=== PATIENT | female | born 1940 | race Caucasian/White ===

== ENCOUNTER 2019-10-10 14:28 | Emergency (ER) | payer MEDICARE ==
[~2019-10-10] VITALS: Ht 162.6 cm; Wt 63.3 kg
[2019-10-10 14:53] VITALS: BP 164/86
--- NOTE | 2019-10-10 15:33 | RAD ---
3 views of the left tibia and fibula no comparison. INDICATION: Contusion and pain in the anterior left tibia. FINDINGS: Calcifications seen in the patellar ligament. There is an irregularity of the medial tibial tubercle there appears to be prepatellar swelling of the tissue anterior to the joint space. IMPRESSION: 1. Possible nondisplaced fracture of the lateral tibial plateau with possible effusion. Recommend dedicated imaging of the knee and cross-sectional imaging if necessary. Electronically signed by: Uriel Segovia MD (10/10/2019 3:30 PM) [id number]
--- NOTE | 2019-10-10 15:38 | PHYS DOC ---
Past Medical History Past Medical History: No Pertinent History Past Surgical History: No Surgical History Alcohol Use: None Adult General Chief Complaint Chief Complaint: LOWEREXTREMITY INJURY [facility] Patient is a 78 year old female who presents with a fall that occurred around 11 AM. Patient states that she fell and hit her left johnston on concrete. The patient denies anything else. The patient states that her pain as 8 out of 10 when she tries to bear weight. The patient states she's having tenderness to left lower leg. Complete ROS were reviewed and found to be within normal limits, except as documented in the [facility] Allergies Allergies Allergies Coded Allergies Type Severity Reaction Last Updated Verified No Known Drug Allergies 10/10/19 No Physical Exam Physical Exam Constitutional: Well developed, well nourished, no acute distress, non-toxic appearance. [] HENT: Normocephalic, atraumatic, bilateral external ears normal, oropharynx moist, no oral exudates, nose normal. [] Eyes: PERRLA, EOMI, conjunctiva normal, no discharge. [] Neck: Normal range of motion, no tenderness, supple, no stridor. [] Cardiovascular:Heart rate regular rhythm, no murmur [] Lungs & Thorax: Bilateral breath sounds clear to auscultation [] Abdomen: Bowel sounds normal, soft, no tenderness, no masses, no pulsatile masses. [] Skin: Warm, dry, no erythema, no rash. [] Back: No tenderness, no CVA tenderness. [] Extremities: No tenderness, no cyanosis, no clubbing, ROM intact, no edema. [] Neurologic: Alert and oriented X 3, normal motor function, normal sensory function, no focal deficits noted. [] Psychologic: Affect normal, judgement normal, mood normal. [] Current Patient Data Vital Signs Vital Signs Date Time Temp Pulse Resp B/P (MAP) Pulse Ox O2 Delivery O2 Flow Rate FiO2 10/10/19 14:53 98.4 104 18 164/86 (112) 97 Room Air 98.4 EKG EKG [] Radiology/Procedures Radiology/Procedures [facility] [address] [place] [address] IMAGING REPORT Signed PATIENT: CHAPARRO HAND ACCOUNT: [id number] : 1940 LOCATION: ER AGE: 78 SEX: F EXAM STATUS: REG ER ORD. PHYSICIAN: GUILLERMINA NORMAN APRN REASON: abnormal x-ray, please scan knee to ankle PROCEDURE: CT LOWER EXTREMITY WO LEFT EXAM: CT left tibia/fibula without contrast DATE: 10/10/2019 3:45 PM COMPARISON: No prior INDICATION: Left knee and lower leg pain TECHNIQUE: CT left lower extremity from the knee through the ankle was performed without the administration of IV contrast. Axial, coronal and sagittal reformatted images were generated at the railroad crane operator console. PQRS compliance statement - One or more of the following individualized dose reduction techniques were utilized for this study: 1. Automated exposure control 2. Adjustment of the mA and/or kV according to patient size 3. Use of iterative reconstruction technique FINDINGS: There is a nondisplaced fracture through the lateral tibial spine and although there is mild underlying trabecular irregularity/microfracturing, no significant articular surface depression or distal extension through the femoral diametaphysis. Moderate lipohemarthrosis of the knee. Patellar tendon ossification, likely from old injury, corticated. Patellar enthesopathy. Knee joint degenerative changes are seen with small associated osteophytes. Decreased bone density. There is also a nondisplaced fractures of the posterior process of the talus without significant displacement. This likely extends to the posterior Turner margin of the tibiotalar joint and extends into the subtalar joint, nondisplaced. Subtle nondisplaced fracture through the anterior process of the calcaneus. IMPRESSION: 1. Nondisplaced lateral tibial spine fracture without significant articular surface depression or subluxation. Moderate left knee hemarthrosis. 2. Nondisplaced fracture through the posterior process of the talus with tibiotalar articular surface extension at the posterior most margin of the talar articular surface. There is also extension into the central portion of the posterior subtalar joint. 3. Nondisplaced fracture through the anterior process of the calcaneus. 4. Decreased bone mineral density. Electronically signed by: Steven Boyle MD (10/10/2019 4:21 PM) [id number] DICTATED and SIGNED BY: STEVEN BOYLE MD DATE: 10/10/19 1621 [][facility] [address] [place] [address] IMAGING REPORT Signed PATIENT: CHAPARRO HAND ACCOUNT: [id number] : 1940 LOCATION: ER AGE: 78 SEX: F EXAM STATUS: PRE ER ORD. PHYSICIAN: GUILLERMINA NORMAN APRN REASON: FALL, CONTUSION AND PAIN TO PROXIMAL ANTERIOR LEFT TIB/FIB PROCEDURE: TIBIA FIBULA LEFT 3 views of the left tibia and fibula no comparison. INDICATION: Contusion and pain in the anterior left tibia. FINDINGS: Calcifications seen in the patellar ligament. There is an irregularity of the medial tibial tubercle there appears to be prepatellar swelling of the tissue anterior to the joint space. IMPRESSION: 1. Possible nondisplaced fracture of the lateral tibial plateau with possible effusion. Recommend dedicated imaging of the knee and cross-sectional imaging if necessary. Electronically signed by: Uriel Segovia MD (10/10/2019 3:30 PM) [id number] DICTATED and SIGNED BY: URIEL SEGOVIA MD DATE: 10/10/19 1530 Course & Med Decision Making Course & Med Decision Making Pertinent Labs and Imaging studies reviewed. (See chart for details) Will get Tib/Fib film. Imaging shows: IMPRESSION: 1. Possible nondisplaced fracture of the lateral tibial plateau with possible effusion. Recommend dedicated imaging of the knee and cross-sectional imaging if necessary. Will get additional imaging and get CT IMPRESSION: 1. Nondisplaced lateral tibial spine fracture without significant articular surface depression or subluxation. Moderate left knee hemarthrosis. 2. Nondisplaced fracture through the posterior process of the talus with tibiotalar articular surface extension at the posterior most margin of the talar articular surface. There is also extension into the central portion of the posterior subtalar joint. 3. Nondisplaced fracture through the anterior process of the calcaneus. 4. Decreased bone mineral density. Electronically signed by: Steven Boyle MD (10/10/2019 4:21 PM) [id number] Will page Dr. Delgado (Ortho) Discussed with Dr. Delgado who recommends patient be non-weight bearing and see him in a week. Dragon Disclaimer Dragon Disclaimer This electronic medical record was generated, in whole or in part, using a voice recognition dictation system. Departure Departure Impression: Primary Impression: Fracture of tibial spine, closed Additional Impressions: Talus fracture Calcaneus fracture, left Disposition: 01 HOME, SELF-CARE Condition: STABLE Referrals: SÁNCHEZ DELGADO MD Additional Instructions: Thank you for visiting [facility]. We appreciate you trusting us with your care. If any additional problems come up don't hesitate to return to visit us. Please follow up with your primary care provider so they can plan additional care if needed and know about the problem that you had. If symptoms worsen come back to the Emergency Department. Any concerning symptoms that start such as chest pain, shortness of air, weakness or numbness on one side of the body, running high fevers or any other concerning symptoms return to the ER. Please follow up with Dr. Delgado in a week. Problem Qualifiers Primary Impression: Fracture of tibial spine, closed Encounter type: initial encounter Fracture alignment: nondisplaced Laterality: left Qualified Codes: S82.115A - Nondisplaced fracture of left tibial spine, initial encounter for closed fracture Additional Impressions: Talus fracture Encounter type: initial encounter Fracture type: closed Talus location: unspecified portion of talus Fracture alignment: nondisplaced Laterality: left Qualified Codes: S92.102A - Unspecified fracture of left talus, initial encounter for closed fracture Calcaneus fracture, left Encounter type: initial encounter Fracture type: closed Fracture morphology: unspecified fracture morphology Fracture alignment: nondisplaced GUILLERMINA NORMAN APRN Oct 10, 2019 15:37
--- NOTE | 2019-10-10 16:24 | RAD ---
EXAM: CT left tibia/fibula without contrast DATE: 10/10/2019 3:45 PM COMPARISON: No prior INDICATION: Left knee and lower leg pain TECHNIQUE: CT left lower extremity from the knee through the ankle was performed without the administration of IV contrast. Axial, coronal and sagittal reformatted images were generated at the elevating grader operator console. PQRS compliance statement - One or more of the following individualized dose reduction techniques were utilized for this study: 1. Automated exposure control 2. Adjustment of the mA and/or kV according to patient size 3. Use of iterative reconstruction technique FINDINGS: There is a nondisplaced fracture through the lateral tibial spine and although there is mild underlying trabecular irregularity/microfracturing, no significant articular surface depression or distal extension through the femoral diametaphysis. Moderate lipohemarthrosis of the knee. Patellar tendon ossification, likely from old injury, corticated. Patellar enthesopathy. Knee joint degenerative changes are seen with small associated osteophytes. Decreased bone density. There is also a nondisplaced fractures of the posterior process of the talus without significant displacement. This likely extends to the posterior Turner margin of the tibiotalar joint and extends into the subtalar joint, nondisplaced. Subtle nondisplaced fracture through the anterior process of the calcaneus. IMPRESSION: 1. Nondisplaced lateral tibial spine fracture without significant articular surface depression or subluxation. Moderate left knee hemarthrosis. 2. Nondisplaced fracture through the posterior process of the talus with tibiotalar articular surface extension at the posterior most margin of the talar articular surface. There is also extension into the central portion of the posterior subtalar joint. 3. Nondisplaced fracture through the anterior process of the calcaneus. 4. Decreased bone mineral density. Electronically signed by: Steven Nazario MD (10/10/2019 4:21 PM) [id number]
== END 2019-10-10 17:40 | disposition home or self-care (01) ==
LOC: ER 14:28
DX: S82.115A Nondisplaced fracture of left tibial spine, initial encounter for closed fracture (principal); S92.102A Unspecified fracture of left talus, initial encounter for closed fracture; S92.002A Unspecified fracture of left calcaneus, initial encounter for closed fracture; W18.09XA Striking against other object with subsequent fall, initial encounter; Y93.89 Activity, other specified; Y92.89 Other specified places as the place of occurrence of the external cause; Y99.8 Other external cause status
CPT/HCPCS: 73590; 73700; 99284-25

== ENCOUNTER 2020-04-14 13:17 | Inpatient (IN) | payer MEDICARE ==
[~2020-04-14] VITALS: Ht 162.6 cm; Wt 67.7 kg
--- NOTE | 2020-04-14 13:31 | PHYS DOC ---
Past Medical History Past Medical History: No Pertinent History Past Surgical History: No Surgical History Smoking Status: Never Smoker Alcohol Use: None General Adult EDM: Chief Complaint: Syncope and left hip injury HPI: HPI: Patient is a 79 year old female who presents since for evaluation following a syncope event. Patient was on the bathroom and got up and passed out. After passing out patient is having dizziness and nausea and the nausea is improved. Patient landed on her left hip and has left hip pain severe pain with range of motion. Pain radiates down the left leg. Patient denies any recent illnesses. No fever no chest pain no shortness of breath no cough no blood in her stool. Pain is described as throbbing Review of Systems: Review of Systems: Constitutional: Denies fever or chills. [] Eyes: Denies change in visual acuity. [] HENT: Denies nasal congestion or sore throat. [] Respiratory: Denies cough or shortness of breath. [] Cardiovascular: Denies chest pain or edema. [] GI: Denies abdominal pain, vomiting, bloody stools or diarrhea. [] But had nausea which is improved : Denies dysuria. [] Musculoskeletal: Complains of left hip pain Integument: Denies rash. [] Neurologic: Denies headache, complains of dizziness but no focal weakness or numbness Endocrine: Denies polyuria or polydipsia. [] Lymphatic: Denies swollen glands. [] Psychiatric: Denies depression or anxiety. [] Heart Score: Risk Factors: Risk Factors: DM, Current or recent (<one month) smoker, HTN, HLP, family history of CAD, obesity. Risk Scores: Score 0 - 3: 2.5% MACE over next 6 weeks - Discharge Home Score 4 - 6: 20.3% MACE over next 6 weeks - Admit for Clinical Observation Score 7 - 10: 72.7% MACE over next 6 weeks - Early Invasive Strategies Allergies: Allergies: Allergies Coded Allergies Type Severity Reaction Last Updated Verified No Known Drug Allergies 10/10/19 No Physical Exam: PE: Constitutional: Well developed, well nourished, no acute distress, non-toxic appearance. [] HENT: Normocephalic, atraumatic, bilateral external ears normal, no trismus, nose normal. [] Eyes: PERRLA, EOMI, conjunctiva normal, no discharge. [] Neck: Normal range of motion, no tenderness, supple, no stridor. [] Cardiovascular:Heart rate regular rhythm, peripheral pulses intact, cap refill brisk Lungs & Thorax: Bilateral breath sounds clear no respiratory distress Abdomen: , soft, no tenderness, no masses, no pulsatile masses. [] Skin: Warm, dry, no erythema, no rash. [] Back: No tenderness, no CVA tenderness. [] Extremities: Tenderness to palpate left hip which is shortened. Limited range of motion due to pain. Neurovascular intact distally Neurologic: Alert and oriented X 3, normal motor function, normal sensory function, no focal deficits noted. [] Psychologic: Affect normal, judgement normal, mood normal. [] Current Patient Data: Labs: Laboratory Tests Test 04/14/20 13:25 White Blood Count 17.9 x10^3/uL Red Blood Count 4.26 x10^6/uL Hemoglobin 12.8 g/dL Hematocrit 38.5 % Mean Corpuscular Volume 91 fL Mean Corpuscular Hemoglobin 30 pg Mean Corpuscular Hemoglobin Concent 33 g/dL Red Cell Distribution Width 13.5 % Platelet Count 200 x10^3/uL Neutrophils (%) (Auto) 84 % Lymphocytes (%) (Auto) 10 % Monocytes (%) (Auto) 5 % Eosinophils (%) (Auto) 1 % Basophils (%) (Auto) 0 % Neutrophils # (Auto) 15.1 x10^3/uL Lymphocytes # (Auto) 1.7 x10^3/uL Monocytes # (Auto) 1.0 x10^3/uL Eosinophils # (Auto) 0.1 x10^3/uL Basophils # (Auto) 0.1 x10^3/uL Segmented Neutrophils % 76 % Band Neutrophils % 6 % Lymphocytes % 15 % Monocytes % 3 % Toxic Granulation Slight Platelet Estimate Adequate Prothrombin Time 13.7 SEC Prothromb Time International Ratio 1.1 Activated Partial Thromboplast Time 27 SEC Sodium Level 137 mmol/L Potassium Level 3.8 mmol/L Chloride Level 100 mmol/L Carbon Dioxide Level 26 mmol/L Anion Gap 11 Blood Urea Nitrogen 20 mg/dL Creatinine 1.1 mg/dL Estimated GFR (Cockcroft-Gault) 48.0 BUN/Creatinine Ratio 18 Glucose Level 133 mg/dL Calcium Level 9.5 mg/dL Total Bilirubin 0.8 mg/dL Aspartate Amino Transf (AST/SGOT) 34 U/L Alanine Aminotransferase (ALT/SGPT) 37 U/L Alkaline Phosphatase 54 U/L Troponin I Quantitative < 0.017 ng/mL Total Protein 6.9 g/dL Albumin 3.8 g/dL Albumin/Globulin Ratio 1.2 Current Medications Medications (Trade) Dose Ordered Sig/Bobby Route PRN Reason Start Time Stop Time Status Last Admin Dose Admin Ondansetron HCl (Zofran) 4 mg PRN Q8HRS PRN IV NAUSEA/VOMITING 04/14/20 14:15 04/15/20 14:14 04/14/20 14:18 Morphine Sulfate (Morphine Sulfate) 2 mg PRN Q2HR PRN IV PAIN 04/14/20 14:15 04/15/20 14:14 04/14/20 14:22 Vital Signs: Vital Signs Date Time Temp Pulse Resp B/P (MAP) Pulse Ox O2 Delivery O2 Flow Rate FiO2 04/14/20 14:22 18 98 Room Air 04/14/20 13:17 97.9 61 18 121/60 (80) 99 Room Air 97.9 EKG: EKG: [] EKG interpreted by ar sinus bradycardia with a rate of 56 normal axis right bundle branch block nonspecific ST changes Radiology/Procedures: Radiology/Procedures: [][facility] [address] [facility] [place], [place] [id number] IMAGING REPORT Signed PATIENT: CHAPARRO HAND ACCOUNT: [id number] : 1940 LOCATION: ER AGE: 79 SEX: F EXAM STATUS: PRE ER ORD. PHYSICIAN: ANNAMARIA BANKS MD REASON: SYNCOPE PROCEDURE: CT HEAD WO CONTRAST CT HEAD WO CONTRAST History: Reason: SYNCOPE / Spl. Instructions: / History: Comparison: None. Technique: Noncontrast CT imaging was performed of the head. Exposure: One or more of the following individualized dose reduction techniques were utilized for this examination: 1. Automated exposure control 2. Adjustment of the mA and/or kV according to patient size 3. Use of iterative reconstruction technique. Findings: No intracranial hemorrhage. No mass effect. No hydrocephalus. Mild brain parenchymal volume loss. Mild foci of decreased attenuation within the hemispheric white matter, most often due to chronic microvascular ischemia. Intracranial atheromatous calcifications. Imaged orbits are unremarkable. Imaged paranasal sinuses and mastoid air cells are clear. No acute calvarial fracture. Impression: 1. No acute intracranial abnormality. 2. Mild sequelae of chronic microvascular ischemia. Electronically signed by: Domenic Mcpherson DO (04/14/2020 1:53 PM) [facility] DICTATED and SIGNED BY: DOMENIC MCPHERSON DO DATE: 04/14/20 1353 [facility] [address] [place] [address] IMAGING REPORT Signed PATIENT: CHAPARRO HAND ACCOUNT: [id number] : 1940 LOCATION: ER AGE: 79 SEX: F EXAM STATUS: PRE ER ORD. PHYSICIAN: ANNAMARIA BANKS MD REASON: SYNCOPE PROCEDURE: PORTABLE CHEST 1V Single view chest. Single view pelvis. 2 view left hip and two-view left femur dated 04/14/2020. CLINICAL INDICATION: Syncope. Pain. FINDINGS: Single upright portable exam of the chest shows normal heart and mediastinal contours. Lungs are clear. No consolidation or pleural effusion. No pneumothorax. Calcified granuloma right upper lobe. Single view pelvis and two-view left hip show comminuted intra-articular fracture of the proximal left femur with mild superior lateral displacement and mild medial angulation at the fracture site. There is slight cortical irregularity at the superior ramus on the left. The pelvic ring is otherwise intact. Mild degenerative change of the bilateral hip joint with spondylotic change of the lower lumbar spine. 2 views left femur show intact mid and distal femoral shaft. There is mild tricompartmental degenerative change of the knee. No apparent knee joint effusion. IMPRESSION: 1. Comminuted, mildly displaced intertrochanteric fracture of the proximal left femur. 2. Slight cortical irregularity of the superior ramus may represent a small nondisplaced fracture. 3. Intact mid and distal femoral shaft. 4. No acute abnormality of the chest. Electronically signed by: Victor M Danielle MD (04/14/2020 2:17 PM) [id number] DICTATED and SIGNED BY: VICTOR M DANIELLE MD DATE: 04/14/20 9021 Course & Med Decision Making: Course & Med Decision Making Pertinent Labs and Imaging studies reviewed. (See chart for details) [] 79-year-old female presents with a syncopal event and left hip fracture. I discussed the case with who will consult and who will admit. consult w/ dr. vita Bates Disclaimer: Paulo Disclaimer: This electronic medical record was generated, in whole or in part, using a voice recognition dictation system. Departure Departure Impression: Primary Impression: Fracture, intertrochanteric, left femur Additional Impression: Syncope Disposition: ADMITTED INPATIENT Admitting Physician: XIOMARA (FRANCISCO) Condition: STABLE Referrals: STACIE DARNELL MD (PCP) Justicifation of Admission Dx: Justifications for Admission: Justification of Admission Dx: Yes ANNAMARIA BANKS MD Apr 14, 2020 13:31
[2020-04-14 13:37] LABS: BASO # 0.1 x10^3/uL (0.0-0.2); BASO % 0 % (0-3); EOS # 0.1 x10^3/uL (0.0-0.7); EOS % 1 % (0-3); HEMATOCRIT 38.5 % (36.0-47.0); HEMOGLOBIN 12.8 g/dL (12.0-15.5); LYMPH # 1.7 x10^3/uL (1.0-4.8); LYMPH % 10 % (24-48); MEAN CORPUSCULAR HEMOGLOBIN 30 pg (25-35); MEAN CORPUSCULAR HGB CONC 33 g/dL (31-37); MEAN CORPUSCULAR VOLUME 91 fL (79-100); MONO % 5 % (0-9); NEUT # 15.1 x10^3/uL (1.8-7.7); NEUT % 84 % (31-73); PLATELET COUNT 200 x10^3/uL (140-400); RED BLOOD COUNT 4.26 x10^6/uL (3.50-5.40); RED CELL DISTRIBUTION WIDTH 13.5 % (11.5-14.5); WHITE BLOOD COUNT 17.9 x10^3/uL (4.0-11.0)
[2020-04-14 13:45] LABS: PROTHROMBIN TIME PATIENT 13.7 SEC (11.7-14.0)
--- NOTE | 2020-04-14 13:56 | RAD ---
CT HEAD WO CONTRAST History: Reason: SYNCOPE / Spl. Instructions: / History: Comparison: None. Technique: Noncontrast CT imaging was performed of the head. Exposure: One or more of the following individualized dose reduction techniques were utilized for this examination: 1. Automated exposure control 2. Adjustment of the mA and/or kV according to patient size 3. Use of iterative reconstruction technique. Findings: No intracranial hemorrhage. No mass effect. No hydrocephalus. Mild brain parenchymal volume loss. Mild foci of decreased attenuation within the hemispheric white matter, most often due to chronic microvascular ischemia. Intracranial atheromatous calcifications. Imaged orbits are unremarkable. Imaged paranasal sinuses and mastoid air cells are clear. No acute calvarial fracture. Impression: 1. No acute intracranial abnormality. 2. Mild sequelae of chronic microvascular ischemia. Electronically signed by: Domenic Mcpherson DO (04/14/2020 1:53 PM) [facility]
[2020-04-14 13:57] LABS: % BANDS 6 % (0-9); % LYMPHS 15 % (24-48); % MONOS 3 % (0-10); % SEGS 76 % (35-66); CALCIUM 9.5 mg/dL (8.5-10.1); CREATININE 1.1 mg/dL (0.6-1.0); POTASSIUM 3.8 mmol/L (3.5-5.1)
[2020-04-14 13:59] LABS: PLT ESTIMATE ADEQUATE (ADEQUATE); TOXIC GRANULATION SLIGHT
[2020-04-14 14:02] LABS: ALBUMIN 3.8 g/dL (3.4-5.0); ALBUMIN/GLOBULIN RATIO 1.2 (1.0-1.7); TOTAL BILIRUBIN 0.8 mg/dL (0.2-1.0); TOTAL PROTEIN 6.9 g/dL (6.4-8.2)
[2020-04-14] MEDS ORDERED: ONDANSETRON PF 4 MG/2 ML VIAL. IV PRN ×2 (14:15→20:30)
--- NOTE | 2020-04-14 14:20 | RAD ---
Single view chest. Single view pelvis. 2 view left hip and two-view left femur dated 04/14/2020. CLINICAL INDICATION: Syncope. Pain. FINDINGS: Single upright portable exam of the chest shows normal heart and mediastinal contours. Lungs are clear. No consolidation or pleural effusion. No pneumothorax. Calcified granuloma right upper lobe. Single view pelvis and two-view left hip show comminuted intra-articular fracture of the proximal left femur with mild superior lateral displacement and mild medial angulation at the fracture site. There is slight cortical irregularity at the superior ramus on the left. The pelvic ring is otherwise intact. Mild degenerative change of the bilateral hip joint with spondylotic change of the lower lumbar spine. 2 views left femur show intact mid and distal femoral shaft. There is mild tricompartmental degenerative change of the knee. No apparent knee joint effusion. IMPRESSION: 1. Comminuted, mildly displaced intertrochanteric fracture of the proximal left femur. 2. Slight cortical irregularity of the superior ramus may represent a small nondisplaced fracture. 3. Intact mid and distal femoral shaft. 4. No acute abnormality of the chest. Electronically signed by: Victor M Danielle MD (04/14/2020 2:17 PM) [id number]
[2020-04-14] MEDS: MORPHINE SULFATE 2 MG/ML VIAL. IV PRN ×4 (14:22→21:42)
--- NOTE | 2020-04-14 14:55 | PDOC1 ---
History and Physical Date of Admission Date of Admission DATE: 04/14/20 TIME: 14:55 Identification/Chief Complaint Chief Complaint Syncope History of Present Illness History of Present Illness Ms Mobley is a 79-year-old female with no known PMHx who presents to ED via pr ivate vehicle c/o left upper leg pain after a fall after getting off the toilet in the morning at home prior to presentation. She was a bit confused but denied any loss of consciousness, head or neck pain. Left leg is rotated and shortened. She initially rated pain an 8/10 which was relieved with IV morphine and immobility. Due to patient's confusion and inability to fully relate her past medical history or surgical history a syncopal event was of concern the physician in patient underwent a CT head which negative for acute abnormalities. Left hip x-ray shows comminuted, mildly displaced intertrochanteric fracture of the proximal left femur and slight cortical irregularity of the superior ramus which may represent a small nondisplaced fracture. CXR with calcified granuloma right upper lobe, otherwise no acute abnormalities. Labs significant for WBC 17.9, Hb 12.8, platelets 200 INR 1.1, NA 137, K3.8, BUN 20, CR 1.1, glucose 133, troponin negative. EKG appears to be sinus bradycardia with a rate of 56 normal axis right bundle branch block nonspecific ST changes She did have a David catheter inserted and a rapid COVID-19 test sent pending likely surgical correction of her left hip fracture. Admitted for further treatment. Past Medical History Cardiovascular: No pertinent hx Past Surgical History Past Surgical History: No pertinent history Family History Family History Reviewed, unknown to patient Family History: Family History Unknown Social History Smoke: No ALCOHOL: none Drugs: None Current Problem List Problem List Problems Medical Problems: (1) Fracture, intertrochanteric, left femur Status: Acute (2) Syncope Status: Acute Current Medications Current Medications Current Medications Ondansetron HCl (Zofran) 4 mg PRN Q8HRS PRN IV NAUSEA/VOMITING Last administered on 04/14/20at 14:18; Start 04/14/20 at 14:15; Stop 04/15/20 at 14:14 Morphine Sulfate (Morphine Sulfate) 2 mg PRN Q2HR PRN IV PAIN Last administered on 04/14/20at 14:22; Start 04/14/20 at 14:15; Stop 04/15/20 at 14:14 Allergies Allergies: Coded Allergies: No Known Drug Allergies (Unverified , 10/10/19) ROS General: No: Chills, Night Sweats, Fatigue, Malaise, Appetite, Other PSYCHOLOGICAL ROS: YES: Disorientation; No: Anxiety, Behavioral Disorder, Concentration difficultie, Decreased libido, Depression, Hallucinations, Hostility, Irritablity, Memory difficulties, Mood Swings, Obsessive thoughts, Physical abuse, Sexual abuse, Sleep disturbances, Suicidal ideation, Other Eyes: No Blurry vision, No Decreased vision, No Double vision, No Dry eyes, No Excessive tearing, No Eye Pain, No Itchy Eyes, No Loss of vision, No Photophobia, No Scotomata, No Uses contacts, No Uses glasses, No Other HEENT: No: Heacaches, Visual Changes, Hearing change, Nasal congestion, Nasal discharge, Oral lesions, Sinus pain, Sore Throat, Epistaxis, Sneezing, Snoring, Tinnitus, Vertigo, Vocal changes, Other ALLERGY AND IMMUNOLOGY: No: Hives, Insect Bite Sensitivity, Itchy/Watery Eyes, Nasal Congestion, Post Nasal Drip, Seasonal Allergies, Other Hematological and Lymphatic: No: Bleeding Problems, Blood Clots, Blood Transfu sions, Brusing, Night Sweats, Pallor, Swollen Lymph Nodes, Other ENDOCRINE: No: Breast Changes, Galactorrhea, Hair Pattern Changes, Hot Flashes, Malaise/lethargy, Mood Swings, Palpitations, Polydipsia/polyuria, Skin Changes, Temperature Intolerance, Unexpected Weight Changes, Other Breast: No New/Changing Breast Lumps, No Nipple changes, No Nipple discharge, No Other Respiratory: No: Cough, Hemoptysis, Orthopnea, Pleuritic Pain, Shortness of breath, SOB with excertion, Sputum Changes, Stridor, Tachypnea, Wheezing, Other Cardiovascular: No Chest Pain, No Palpitations, No Orthopnea, No Paroxysmal Noc. Dyspnea, No Edema, No Lt Headedness, No Other Gastrointestinal: No Nausea, No Vomiting, No Abdominal Pain, No Diarrhea, No Constipation, No Melena, No Hematochezia, No Other Genitourinary: No Dysuria, No Frequency, No Incontinence, No Hematuria, No Retention, No Discharge, No Urgency, No Pain, No Flank Pain, No Other, No , No , No , No , No , No , No Musculoskeletal: Yes Gait Disturbance, Yes Joint Pain, Yes Joint Stiffness, Yes Muscle Pain, Yes Muscular Weakness Neurological: Yes Gait Disturbance; No Behavorial Changes, No Bowel/Bladder ControlChng, No Confusion, No Dizziness, No Headaches, No Impaired Coord/balance, No Memory Loss, No Numbness/Tingling, No Seizures, No Speech Problems, No Tremors, No Visual Changes, No Weakness, No Other Skin: No Dry Skin, No Eczema, No Hair Changes, No Lumps, No Mole Changes, No Mottling, No Nail Changes, No Pruritus, No Rash, No Skin Lesion Changes, No Other, No Acne Physical Exam General: Alert, Oriented X3, Cooperative, moderate distress HEENT: Atraumatic, PERRLA, EOMI, Mucous membr. moist/pink Lungs: Clear to auscultation, Normal air movement Heart: S1S2, RRR, no thrills, no rubs, no gallops, no murmurs Abdomen: Normal bowel sounds, Soft, No tenderness, No hepatosplenomegaly, No masses Rectal Exam: not examined PELVIC: Other (David in place) Extremities: No clubbing, No cyanosis, No edema, Normal pulses, Other (left leg externally rotated and shortened) Skin: No rashes, No breakdown, No significant lesion Neuro: Normal speech, Normal tone, Sensation intact, Cranial nerves 3-12 NL, Reflexes 2+ Psych/Mental Status: Mental status NL, Mood NL Vitals Vitals Vital Signs Date Time Temp Pulse Resp B/P (MAP) Pulse Ox O2 Delivery O2 Flow Rate FiO2 04/14/20 14:22 18 98 Room Air 04/14/20 13:17 97.9 61 121/60 (80) 97.9 Labs Labs Laboratory Tests Test 04/14/20 13:25 White Blood Count 17.9 x10^3/uL (4.0-11.0) Red Blood Count 4.26 x10^6/uL (3.50-5.40) Hemoglobin 12.8 g/dL (12.0-15.5) Hematocrit 38.5 % (36.0-47.0) Mean Corpuscular Volume 91 fL (79-100) Mean Corpuscular Hemoglobin 30 pg (25-35) Mean Corpuscular Hemoglobin Concent 33 g/dL (31-37) Red Cell Distribution Width 13.5 % (11.5-14.5) Platelet Count 200 x10^3/uL (140-400) Neutrophils (%) (Auto) 84 % (31-73) Lymphocytes (%) (Auto) 10 % (24-48) Monocytes (%) (Auto) 5 % (0-9) Eosinophils (%) (Auto) 1 % (0-3) Basophils (%) (Auto) 0 % (0-3) Neutrophils # (Auto) 15.1 x10^3/uL (1.8-7.7) Lymphocytes # (Auto) 1.7 x10^3/uL (1.0-4.8) Monocytes # (Auto) 1.0 x10^3/uL (0.0-1.1) Eosinophils # (Auto) 0.1 x10^3/uL (0.0-0.7) Basophils # (Auto) 0.1 x10^3/uL (0.0-0.2) Segmented Neutrophils % 76 % (35-66) Band Neutrophils % 6 % (0-9) Lymphocytes % 15 % (24-48) Monocytes % 3 % (0-10) Toxic Granulation Slight Platelet Estimate Adequate (ADEQUATE) Prothrombin Time 13.7 SEC (11.7-14.0) Prothromb Time International Ratio 1.1 (0.8-1.1) Activated Partial Thromboplast Time 27 SEC (24-38) Sodium Level 137 mmol/L (136-145) Potassium Level 3.8 mmol/L (3.5-5.1) Chloride Level 100 mmol/L (98-107) Carbon Dioxide Level 26 mmol/L (21-32) Anion Gap 11 (6-14) Blood Urea Nitrogen 20 mg/dL (7-20) Creatinine 1.1 mg/dL (0.6-1.0) Estimated GFR (Cockcroft-Gault) 48.0 BUN/Creatinine Ratio 18 (6-20) Glucose Level 133 mg/dL (70-99) Calcium Level 9.5 mg/dL (8.5-10.1) Total Bilirubin 0.8 mg/dL (0.2-1.0) Aspartate Amino Transf (AST/SGOT) 34 U/L (15-37) Alanine Aminotransferase (ALT/SGPT) 37 U/L (14-59) Alkaline Phosphatase 54 U/L (46-116) Troponin I Quantitative < 0.017 ng/mL (0.000-0.055) Total Protein 6.9 g/dL (6.4-8.2) Albumin 3.8 g/dL (3.4-5.0) Albumin/Globulin Ratio 1.2 (1.0-1.7) Laboratory Tests Test 04/14/20 13:25 White Blood Count 17.9 x10^3/uL (4.0-11.0) Red Blood Count 4.26 x10^6/uL (3.50-5.40) Hemoglobin 12.8 g/dL (12.0-15.5) Hematocrit 38.5 % (36.0-47.0) Mean Corpuscular Volume 91 fL (79-100) Mean Corpuscular Hemoglobin 30 pg (25-35) Mean Corpuscular Hemoglobin Concent 33 g/dL (31-37) Red Cell Distribution Width 13.5 % (11.5-14.5) Platelet Count 200 x10^3/uL (140-400) Neutrophils (%) (Auto) 84 % (31-73) Lymphocytes (%) (Auto) 10 % (24-48) Monocytes (%) (Auto) 5 % (0-9) Eosinophils (%) (Auto) 1 % (0-3) Basophils (%) (Auto) 0 % (0-3) Neutrophils # (Auto) 15.1 x10^3/uL (1.8-7.7) Lymphocytes # (Auto) 1.7 x10^3/uL (1.0-4.8) Monocytes # (Auto) 1.0 x10^3/uL (0.0-1.1) Eosinophils # (Auto) 0.1 x10^3/uL (0.0-0.7) Basophils # (Auto) 0.1 x10^3/uL (0.0-0.2) Segmented Neutrophils % 76 % (35-66) Band Neutrophils % 6 % (0-9) Lymphocytes % 15 % (24-48) Monocytes % 3 % (0-10) Toxic Granulation Slight Platelet Estimate Adequate (ADEQUATE) Prothrombin Time 13.7 SEC (11.7-14.0) Prothromb Time International Ratio 1.1 (0.8-1.1) Activated Partial Thromboplast Time 27 SEC (24-38) Sodium Level 137 mmol/L (136-145) Potassium Level 3.8 mmol/L (3.5-5.1) Chloride Level 100 mmol/L (98-107) Carbon Dioxide Level 26 mmol/L (21-32) Anion Gap 11 (6-14) Blood Urea Nitrogen 20 mg/dL (7-20) Creatinine 1.1 mg/dL (0.6-1.0) Estimated GFR (Cockcroft-Gault) 48.0 BUN/Creatinine Ratio 18 (6-20) Glucose Level 133 mg/dL (70-99) Calcium Level 9.5 mg/dL (8.5-10.1) Total Bilirubin 0.8 mg/dL (0.2-1.0) Aspartate Amino Transf (AST/SGOT) 34 U/L (15-37) Alanine Aminotransferase (ALT/SGPT) 37 U/L (14-59) Alkaline Phosphatase 54 U/L (46-116) Troponin I Quantitative < 0.017 ng/mL (0.000-0.055) Total Protein 6.9 g/dL (6.4-8.2) Albumin 3.8 g/dL (3.4-5.0) Albumin/Globulin Ratio 1.2 (1.0-1.7) Images Images CT HEAD WO CONTRAST No intracranial hemorrhage. No mass effect. No hydrocephalus. Mild brain parenchymal volume loss. Mild foci of decreased attenuation within the hemispheric white matter, most often due to chronic microvascular ischemia. Intracranial atheromatous calcifications. Imaged orbits are unremarkable. Imaged paranasal sinuses and mastoid air cells are clear. No acute calvarial fracture. Impression: 1. No acute intracranial abnormality. 2. Mild sequelae of chronic microvascular ischemia. Single view chest. Single view pelvis. 2 view left hip and two-view left femur dated 04/14/2020. CXR: Single upright portable exam of the chest shows normal heart and mediastinal contours. Lungs are clear. No consolidation or pleural effusion. No pneumothorax. Calcified granuloma right upper lobe. Single view pelvis and two-view left hip XR: Comminuted intra-articular fracture of the proximal left femur with mild superior lateral displacement and mild medial angulation at the fracture site. There is slight cortical irregularity at the superior ramus on the left. The pelvic ring is otherwise intact. Mild degenerative change of the bilateral hip joint with spondylotic change of the lower lumbar spine. 2 views left femur XR: Intact mid and distal femoral shaft. There is mild tricompartmental degenerative change of the knee. No apparent knee joint effusion. IMPRESSION: 1. Comminuted, mildly displaced intertrochanteric fracture of the proximal left femur. 2. Slight cortical irregularity of the superior ramus may represent a small nondisplaced fracture. 3. Intact mid and distal femoral shaft. 4. No acute abnormality of the chest. VTE Prophylaxis Ordered VTE Prophylaxis Devices: No VTE Pharmacological Prophylaxi: Yes Assessment/Plan Assessment/Plan A/P: Fall at home - from toilet, possibly had vasovagal syncope, vs accidental fall. PT to evalate post-operatively. Comminuted, mildly displaced intertrochanteric fracture of the proximal left femur -bedrest. Pain control. Orthopedic surgery consulted, rapid COVID-19 testing obtained. Slight cortical irregularity of the superior ramus may represent a small nondisplaced fracture. Right bundle branch block - nonpathologic EKG finding, can be associated with chronic respiratory disease, however patient notes she is non-smoker. ED has c onsulted cardiology. Acute encephalopathy - negative CT head. Seen immediately after morphine dosing, and most of history was obtained initially after morphine dosing. continue to monitor her mental status Leukocytosis -likely reactive secondary to trauma. Will trend the WBC count. RODGER - vasomotor nephropathy likely 2/2 acute trauma, will hydrate overnight while NPO. Repeat labs in AM. FEN - general diet, NPO after midnight PPX - Lovenox post-op for at least 14 days. Hip fracture surgery data on NOACs and warfarin is not consistent enough to warrant any other therapy. FULL CODE Dispo - inpatient at least 2 midnights Justicifation of Admission Dx: Justifications for Admission: Justification of Admission Dx: Yes MABEL SINGH MD Apr 14, 2020 14:55
[2020-04-14] MEDS ORDERED: MORPHINE SULFATE 4 MG/ML VIAL. IV ONE (15:15)
[2020-04-14 19:25] VITALS: BP 132/65
[2020-04-14] MEDS ORDERED: POLYETHYLENE GLYCOL 3350 17 GM PACKET. PO PRN (20:30)
[2020-04-14] MEDS ORDERED: SENNOSIDES/DOCUSATE 8.6/50MG TABLET. PO PRN (20:30)
[2020-04-14] MEDS ORDERED: ACETAMINOPHEN 325 MG TABLET. PO PRN (20:30)
[2020-04-14] MEDS ORDERED: POTASSIUM CL 20MEQ D5-0.45NACL 1,000 ML IV ONE (21:00)
[2020-04-14 23:20] VITALS: BP 151/71
[2020-04-15] MEDS: MORPHINE SULFATE 2 MG/ML VIAL. IV PRN ×2 (01:07→07:01)
[2020-04-15 03:15] VITALS: BP 166/74
[2020-04-15 04:40] LABS: BASO % 0 % (0-3); EOS % 1 % (0-3); HEMATOCRIT 33.2 % (36.0-47.0); HEMOGLOBIN 11.4 g/dL (12.0-15.5); LYMPH # 1.6 x10^3/uL (1.0-4.8); LYMPH % 23 % (24-48); MEAN CORPUSCULAR HEMOGLOBIN 31 pg (25-35); MEAN CORPUSCULAR HGB CONC 34 g/dL (31-37); MEAN CORPUSCULAR VOLUME 91 fL (79-100); MONO # 0.8 x10^3/uL (0.0-1.1); MONO % 12 % (0-9); NEUT # 4.2 x10^3/uL (1.8-7.7); NEUT % 64 % (31-73); PLATELET COUNT 156 x10^3/uL (140-400); RED BLOOD COUNT 3.65 x10^6/uL (3.50-5.40); WHITE BLOOD COUNT 6.7 x10^3/uL (4.0-11.0)
[2020-04-15 05:03] LABS: CALCIUM 8.8 mg/dL (8.5-10.1); GFR 53.6; POTASSIUM 4.6 mmol/L (3.5-5.1)
[2020-04-15] MEDS ORDERED: MORPHINE SULFATE 2 MG/ML VIAL. IV PRN (07:00)
[2020-04-15] MEDS ORDERED: fentaNYL PF VIAL 100 MCG/2 ML VIAL IV PRN ×2 (07:00)
[2020-04-15] MEDS ORDERED: PROCHLORPERAZINE 10 MG/2 ML VIAL. IV PRN (07:00)
[2020-04-15] MEDS ORDERED: IV RINGERS,LACTATED 1000ML 1,000 ML IV SCH (07:00)
[2020-04-15] MEDS ORDERED: LIDOCAINE 1% PF 2 ML VIAL. ID PRN (07:00)
[2020-04-15] MEDS ORDERED: ONDANSETRON PF 4 MG/2 ML VIAL. IV PRN (07:00)
[2020-04-15] MEDS ORDERED: HYDROmorphone 2 MG/ML VIAL IV PRN (07:00)
[2020-04-15 07:23] VITALS: BP 136/63
--- NOTE | 2020-04-15 08:42 | PDOC ---
[facility] PROGRESS NOTE Date of Service DOS: DATE: 04/15/20 TIME: 08:41 Chief Complaint Chief Complaint A/P: Fall at home - from toilet, possibly had vasovagal syncope, vs accidental fall. PT to evalate post-operatively. Comminuted, mildly displaced intertrochanteric fracture of the proximal left femur -bedrest. Pain control. Orthopedic surgery consulted, rapid COVID-19 testing obtained. Slight cortical irregularity of the superior ramus may represent a small nondisplaced fracture. Right bundle branch block - nonpathologic EKG finding, can be associated with chronic respiratory disease, however patient notes she is non-smoker. ED has consulted cardiology. Acute encephalopathy - negative CT head. Seen immediately after morphine dosing, and most of history was obtained initially after morphine dosing. continue to monitor her mental status Leukocytosis -likely reactive secondary to trauma. Will trend the WBC count. RODGER - vasomotor nephropathy likely 2/2 acute trauma, will hydrate overnight while NPO. Repeat labs in AM. FEN - general diet, NPO after midnight PPX - Lovenox post-op for at least 14 days. Hip fracture surgery data on NOACs and warfarin is not consistent enough to warrant any other therapy. FULL CODE Dispo - inpatient at least 2 midnights History of Present Illness History of Present Illness Ms Mobley is a 79-year-old female with no known PMHx who presents to ED via private vehicle c/o left upper leg pain after a fall after getting off the toilet in the morning at home prior to presentation. She was a bit confused but denied any loss of consciousness, head or neck pain. Left leg is rotated and shortened. She initially rated pain an 8/10 which was relieved with IV morphine and immobility. Due to patient's confusion and inability to fully relate her past medical history or surgical history a syncopal event was of concern the physician in patient underwent a CT head which negative for acute abnormalities. Left hip x-ray shows comminuted, mildly displaced intertrochanteric fracture of the proximal left femur and slight cortical irregularity of the superior ramus which may represent a small nondisplaced fracture. CXR with calcified granuloma right upper lobe, otherwise no acute abnormalities. Labs significant for WBC 17.9, Hb 12.8, platelets 200 INR 1.1, NA 137, K3.8, BUN 20, CR 1.1, glucose 133, troponin negative. EKG appears to be sinus bradycardia with a rate of 56 normal axis right bundle branch block nonspecific ST changes She did have a David catheter inserted and a rapid COVID-19 test sent which returned negative. Admitted for further treatment. Afebrile. No overnight events. WBC decreased to 6.7, Hb 11.4. CR improved to 1. No telemetry events. Her son is bedside visiting. They are concerned that we had a small power outage today. Vitals/I&O Vitals/I&O: Vital Signs Date Time Temp Pulse Resp B/P (MAP) Pulse Ox O2 Delivery O2 Flow Rate FiO2 04/15/20 07:23 98.4 90 20 136/63 (87) 97 Nasal Cannula 1.0 98.4 I & O 04/14/20 04/14/20 04/15/20 15:00 23:00 07:00 Intake Total 400 ml 120 ml Output Total 700 ml Balance 400 ml -580 ml Physical Exam General: Alert, Oriented X3, Cooperative, moderate distress Heart: Regular rate, Normal S1, Normal S2 Lungs: Clear Abdomen: Normal bowel sounds, Soft, No tenderness, No hepatosplenomegaly, No masses Extremities: No clubbing, No cyanosis, No edema, Normal pulses, Other (left leg externally rotated and shortened) Skin: No rashes, No breakdown, No significant lesion Labs Labs: Laboratory Tests Test 04/14/20 13:25 04/14/20 15:00 04/15/20 04:10 White Blood Count 17.9 x10^3/uL (4.0-11.0) 6.7 x10^3/uL (4.0-11.0) Red Blood Count 4.26 x10^6/uL (3.50-5.40) 3.65 x10^6/uL (3.50-5.40) Hemoglobin 12.8 g/dL (12.0-15.5) 11.4 g/dL (12.0-15.5) Hematocrit 38.5 % (36.0-47.0) 33.2 % (36.0-47.0) Mean Corpuscular Volume 91 fL (79-100) 91 fL (79-100) Mean Corpuscular Hemoglobin 30 pg (25-35) 31 pg (25-35) Mean Corpuscular Hemoglobin Concent 33 g/dL (31-37) 34 g/dL (31-37) Red Cell Distribution Width 13.5 % (11.5-14.5) 13.0 % (11.5-14.5) Platelet Count 200 x10^3/uL (140-400) 156 x10^3/uL (140-400) Neutrophils (%) (Auto) 84 % (31-73) 64 % (31-73) Lymphocytes (%) (Auto) 10 % (24-48) 23 % (24-48) Monocytes (%) (Auto) 5 % (0-9) 12 % (0-9) Eosinophils (%) (Auto) 1 % (0-3) 1 % (0-3) Basophils (%) (Auto) 0 % (0-3) 0 % (0-3) Neutrophils # (Auto) 15.1 x10^3/uL (1.8-7.7) 4.2 x10^3/uL (1.8-7.7) Lymphocytes # (Auto) 1.7 x10^3/uL (1.0-4.8) 1.6 x10^3/uL (1.0-4.8) Monocytes # (Auto) 1.0 x10^3/uL (0.0-1.1) 0.8 x10^3/uL (0.0-1.1) Eosinophils # (Auto) 0.1 x10^3/uL (0.0-0.7) 0.0 x10^3/uL (0.0-0.7) Basophils # (Auto) 0.1 x10^3/uL (0.0-0.2) 0.0 x10^3/uL (0.0-0.2) Segmented Neutrophils % 76 % (35-66) Band Neutrophils % 6 % (0-9) Lymphocytes % 15 % (24-48) Monocytes % 3 % (0-10) Toxic Granulation Slight Platelet Estimate Adequate (ADEQUATE) Prothrombin Time 13.7 SEC (11.7-14.0) Prothromb Time International Ratio 1.1 (0.8-1.1) Activated Partial Thromboplast Time 27 SEC (24-38) Sodium Level 137 mmol/L (136-145) 136 mmol/L (136-145) Potassium Level 3.8 mmol/L (3.5-5.1) 4.6 mmol/L (3.5-5.1) Chloride Level 100 mmol/L (98-107) 101 mmol/L (98-107) Carbon Dioxide Level 26 mmol/L (21-32) 31 mmol/L (21-32) Anion Gap 11 (6-14) 4 (6-14) Blood Urea Nitrogen 20 mg/dL (7-20) 16 mg/dL (7-20) Creatinine 1.1 mg/dL (0.6-1.0) 1.0 mg/dL (0.6-1.0) Estimated GFR (Cockcroft-Gault) 48.0 53.6 BUN/Creatinine Ratio 18 (6-20) Glucose Level 133 mg/dL (70-99) 117 mg/dL (70-99) Calcium Level 9.5 mg/dL (8.5-10.1) 8.8 mg/dL (8.5-10.1) Total Bilirubin 0.8 mg/dL (0.2-1.0) Aspartate Amino Transf (AST/SGOT) 34 U/L (15-37) Alanine Aminotransferase (ALT/SGPT) 37 U/L (14-59) Alkaline Phosphatase 54 U/L (46-116) Troponin I Quantitative < 0.017 ng/mL (0.000-0.055) Total Protein 6.9 g/dL (6.4-8.2) Albumin 3.8 g/dL (3.4-5.0) Albumin/Globulin Ratio 1.2 (1.0-1.7) SARS-CoV-2 Antigen (Rapid) Negative (NEGATIVE) Assessment and Plan Assessmemt and Plan Problems Medical Problems: (1) Fracture, intertrochanteric, left femur Status: Acute (2) Syncope Status: Acute Comment Review of Relevant I have reviewed the following items heidi (where applicable) has been applied. Medications: Current Medications Medications (Trade) Dose Ordered Sig/Bobby Route PRN Reason Start Time Stop Time Status Last Admin Dose Admin Ondansetron HCl (Zofran) 4 mg PRN Q8HRS PRN IV NAUSEA/VOMITING 04/14/20 14:15 04/14/20 20:34 DC 04/14/20 14:18 Morphine Sulfate (Morphine Sulfate) 2 mg PRN Q2HR PRN IV PAIN 04/14/20 14:15 04/15/20 07:01 Morphine Sulfate (Morphine Sulfate) 4 mg 1X ONCE IV 04/14/20 15:15 04/14/20 15:16 DC 04/14/20 15:08 Potassium Chloride/Dextrose/ Sod Cl 1,000 ml @ 80 mls/hr 1X ONCE IV 04/14/20 21:00 04/15/20 09:29 04/14/20 21:41 Justicifation of Admission Dx: Justifications for Admission: Justification of Admission Dx: Yes MABEL SINGH MD Apr 15, 2020 08:42
--- NOTE | 2020-04-15 08:44 | NUR ---
dr sims paged. Dr Sims stated as long as patient is not having chest pain she is ok for surgery. patient is not having any complaints of chest pain. dr fine notified.
[2020-04-15] MEDS ORDERED: PHENYLEPHRINE in 0.9% NACL PF 1 MG/10 ML SYRINGE. IV ONE (08:48)
[2020-04-15] MEDS ORDERED: DEXAMETHASONE SOD PHOS 4 MG/ML VIAL ONE (08:48)
[2020-04-15] MEDS ORDERED: ePHEDrine PF IN SALINE 50 MG/10 ML SYRINGE. IV ONE (08:48)
[2020-04-15] MEDS ORDERED: LIDOCAINE 2% PF 5 ML VIAL. ONE (08:48)
[2020-04-15] MEDS ORDERED: ONDANSETRON PF 4 MG/2 ML VIAL. ONE (08:48)
[2020-04-15] MEDS ORDERED: PROPOFOL 10 MG/ML (20ML) VIAL. IV ONE (08:48)
[2020-04-15] MEDS ORDERED: GLYCOPYRROLATE 1 MG/5 ML VIAL. ONE (08:49)
[2020-04-15] MEDS ORDERED: fentaNYL PF VIAL 100 MCG/2 ML VIAL ONE (08:49)
[2020-04-15] MEDS ORDERED: SUCCINYLCHOLINE 200 MG/10 ML VIAL. ONE (08:50)
[2020-04-15] MEDS: PSYLLIUM HUSK (SUGAR FREE) 1 PKT PACKET PO SCH (09:00)
--- NOTE | 2020-04-15 09:16 | PDOC2 ---
CONSULT Date of Consult Date of Consult DATE: 04/15/20 TIME: 09:14 Identification/Chief Complaint Chief Complaint Left hip fracture Source Source: Chart review, Patient History of Present Illness Reason for Visit: This 79-year-old retired woman lives in her own home and does not normally use a walker or cane except briefly used a cane previously due to an injury. She had a syncopal episode and fell in the bathroom and broke her left hip. She was admitted to the hospital, and the syncopal episode does not show any concerning cardiac pathology at this time. She was cleared by cardiology to proceed with surgery. Past Medical History Past Medical History she had breast cancer and a mastectomy Cardiovascular: No pertinent hx Heme/Onc: Cancer Past Surgical History Past Surgical History: Mastectomy, No pertinent history Family History Family History her brother from chronic lung disease which was noncancerous. Another brother was exposed to [place] and did develop cancer. Family History: Cancer Social History Social History She is retired and had worked in housekeeping and childcare. She lives with her and also some extended family members. She still drives. No ALCOHOL: none Drugs: None Lives: with Family Current Problem List Problem List Problems Medical Problems: (1) Fracture, intertrochanteric, left femur Status: Acute (2) Syncope Status: Acute Current Medications Current Medications Current Medications Ondansetron HCl (Zofran) 4 mg PRN Q8HRS PRN IV NAUSEA/VOMITING Last administered on 04/14/20at 14:18; Start 04/14/20 at 14:15; Stop 04/14/20 at 20:34; Status DC Morphine Sulfate (Morphine Sulfate) 2 mg PRN Q2HR PRN IV PAIN Last administered on 04/15/20at 07:01; Start 04/14/20 at 14:15 Morphine Sulfate (Morphine Sulfate) 4 mg 1X ONCE IV Last administered on 04/14/20at 15:08; Start 04/14/20 at 15:15; Stop 04/14/20 at 15:16; Status DC Ondansetron HCl (Zofran) 4 mg PRN Q4HRS PRN IV NAUSEA/VOMITING; Start 04/14/20 at 20:30 Psyllium Hydrophilic Mucilloid (Metamucil Fiber Packet) 1 pkt DAILY PO ; Start 04/15/20 at 09:00 Polyethylene Glycol (miraLAX PACKET) 17 gm PRN DAILY PRN PO CONSTIPATION 1ST CHOICE; Start 04/14/20 at 20:30 Senna/Docusate Sodium (Senna Plus) 2 tab PRN BID PRN PO CONSTIPATION 2ND CHOICE; Start 04/14/20 at 20:30 Acetaminophen (Tylenol) 650 mg PRN Q6HRS PRN PO TEMP > 100.3'F; Start 04/14/20 at 20:30 Tramadol HCl (Ultram) 50 mg PRN Q6HRS PRN PO PAIN; Start 04/14/20 at 20:30 Enoxaparin Sodium (Lovenox 40mg Syringe) 40 mg Q24H SQ ; Start 04/15/20 at 21:00 Potassium Chloride/Dextrose/ Sod Cl 1,000 ml @ 80 mls/hr 1X ONCE IV Last administered on 04/14/20at 21:41; Start 04/14/20 at 21:00; Stop 04/15/20 at 09:29 Ondansetron HCl (Zofran) 4 mg PRN Q6HRS PRN IV NAUSEA/VOMITING; Start 04/15/20 at 07:00; Stop 04/16/20 at 06:59 Fentanyl Citrate (Fentanyl 2ml Vial) 25 mcg PRN Q5MIN PRN IV MILD PAIN 1-3; Start 04/15/20 at 07:00; Stop 04/16/20 at 06:59 Fentanyl Citrate (Fentanyl 2ml Vial) 50 mcg PRN Q5MIN PRN IV MODERATE TO SEVERE PAIN; Start 04/15/20 at 07:00; Stop 04/16/20 at 06:59 Morphine Sulfate (Morphine Sulfate) 1 mg PRN Q10MIN PRN IV SEVERE PAIN 7-10; Start 04/15/20 at 07:00; Stop 04/16/20 at 06:59 Ringer's Solution 1,000 ml @ 30 mls/hr Q24H IV ; Start 04/15/20 at 07:00; Stop 04/15/20 at 18:59 Lidocaine HCl (Xylocaine-Mpf 1% 2ml Vial) 2 ml PRN 1X PRN ID PRIOR TO IV START; Start 04/15/20 at 07:00; Stop 04/16/20 at 06:59 Hydromorphone HCl (Dilaudid) 0.5 mg PRN Q10MIN PRN IV SEV PAIN, Second choice; Start 04/15/20 at 07:00; Stop 04/16/20 at 06:59 Prochlorperazine Edisylate (Compazine) 5 mg PACU PRN PRN IV NAUSEA, MRX1; Start 04/15/20 at 07:00; Stop 04/16/20 at 06:59 Propofol (Diprivan) 200 mg STK-MED ONCE IV ; Start 04/15/20 at 08:48; Stop 04/15/20 at 08:48; Status DC Lidocaine HCl (Lidocaine Pf 2% Vial) 5 ml STK-MED ONCE .ROUTE ; Start 04/15/20 at 08:48; Stop 04/15/20 at 08:48; Status DC Dexamethasone Sodium Phosphate (Decadron) 4 mg STK-MED ONCE .ROUTE ; Start 04/15/20 at 08:48; Stop 04/15/20 at 08:48; Status DC Ondansetron HCl (Zofran) 4 mg STK-MED ONCE .ROUTE ; Start 04/15/20 at 08:48; Stop 04/15/20 at 08:49; Status DC Ephedrine Sulfate (ePHEDrine PF IN SALINE SYRINGE) 50 mg STK-MED ONCE IV ; Start 04/15/20 at 08:48; Stop 04/15/20 at 08:49; Status DC Phenylephrine HCl (PHENYLEPHRINE in 0.9% NACL PF) 1 mg STK-MED ONCE IV ; Start 04/15/20 at 08:48; Stop 04/15/20 at 08:49; Status DC Glycopyrrolate (Robinul) 1 mg STK-MED ONCE .ROUTE ; Start 04/15/20 at 08:49; Stop 04/15/20 at 08:49; Status DC Fentanyl Citrate (Fentanyl 2ml Vial) 100 mcg STK-MED ONCE .ROUTE ; Start 04/15/20 at 08:49; Stop 04/15/20 at 08:49; Status DC Succinylcholine Chloride (Anectine) 200 mg STK-MED ONCE .ROUTE ; Start 04/15/20 at 08:50; Stop 04/15/20 at 08:50; Status DC Allergies Allergies: Coded Allergies: No Known Drug Allergies (Unverified , 10/10/19) ROS Review of System Constitutional: Denies fever or chills. Eyes: Denies change in visual acuity. HENT: Denies nasal congestion or sore throat. Respiratory: Denies cough or shortness of breath. Cardiovascular: Denies chest pain or edema. GI: Denies abdominal pain, vomiting, bloody stools or diarrhea. But had nausea which is improved : Denies dysuria. Musculoskeletal: Complains of left hip pain Integument: Denies rash. Neurologic: Denies headache, complains of dizziness but no focal weakness or numbness Endocrine: Denies polyuria or polydipsia. Lymphatic: Denies swollen glands. Psychiatric: Denies depression or anxiety. Physical Exam General: Alert, Cooperative HEENT: Atraumatic Lungs: Normal air movement Heart: Regular rate Abdomen: Soft Extremities: Other (There is tenderness of the left hip. There is pain with any attempted motion. The skin is intact. There is ecchymosis at the femur just below the area of the fracture but she says this was there prior to her fall and was related to bumping into a coffee table a few days ago. The extremity is shortened and externally rotated. Light touch sensation is intact at the foot and toes. Capillary refill and pulses are intact without evidence of ischemia. Slight dorsiflexion and plantarflexion are possible without evidence of sciatic nerve injury) Skin: No breakdown Neuro: Normal speech, Sensation intact Vitals VITALS Vital Signs Date Time Temp Pulse Resp B/P (MAP) Pulse Ox O2 Delivery O2 Flow Rate FiO2 04/15/20 08:07 Nasal Cannula 1.0 04/15/20 07:35 19 97 04/15/20 07:23 98.4 90 136/63 (87) 98.4 Labs Labs Laboratory Tests Test 04/14/20 13:25 04/14/20 15:00 04/15/20 04:10 White Blood Count 17.9 x10^3/uL (4.0-11.0) 6.7 x10^3/uL (4.0-11.0) Red Blood Count 4.26 x10^6/uL (3.50-5.40) 3.65 x10^6/uL (3.50-5.40) Hemoglobin 12.8 g/dL (12.0-15.5) 11.4 g/dL (12.0-15.5) Hematocrit 38.5 % (36.0-47.0) 33.2 % (36.0-47.0) Mean Corpuscular Volume 91 fL (79-100) 91 fL (79-100) Mean Corpuscular Hemoglobin 30 pg (25-35) 31 pg (25-35) Mean Corpuscular Hemoglobin Concent 33 g/dL (31-37) 34 g/dL (31-37) Red Cell Distribution Width 13.5 % (11.5-14.5) 13.0 % (11.5-14.5) Platelet Count 200 x10^3/uL (140-400) 156 x10^3/uL (140-400) Neutrophils (%) (Auto) 84 % (31-73) 64 % (31-73) Lymphocytes (%) (Auto) 10 % (24-48) 23 % (24-48) Monocytes (%) (Auto) 5 % (0-9) 12 % (0-9) Eosinophils (%) (Auto) 1 % (0-3) 1 % (0-3) Basophils (%) (Auto) 0 % (0-3) 0 % (0-3) Neutrophils # (Auto) 15.1 x10^3/uL (1.8-7.7) 4.2 x10^3/uL (1.8-7.7) Lymphocytes # (Auto) 1.7 x10^3/uL (1.0-4.8) 1.6 x10^3/uL (1.0-4.8) Monocytes # (Auto) 1.0 x10^3/uL (0.0-1.1) 0.8 x10^3/uL (0.0-1.1) Eosinophils # (Auto) 0.1 x10^3/uL (0.0-0.7) 0.0 x10^3/uL (0.0-0.7) Basophils # (Auto) 0.1 x10^3/uL (0.0-0.2) 0.0 x10^3/uL (0.0-0.2) Segmented Neutrophils % 76 % (35-66) Band Neutrophils % 6 % (0-9) Lymphocytes % 15 % (24-48) Monocytes % 3 % (0-10) Toxic Granulation Slight Platelet Estimate Adequate (ADEQUATE) Prothrombin Time 13.7 SEC (11.7-14.0) Prothromb Time International Ratio 1.1 (0.8-1.1) Activated Partial Thromboplast Time 27 SEC (24-38) Sodium Level 137 mmol/L (136-145) 136 mmol/L (136-145) Potassium Level 3.8 mmol/L (3.5-5.1) 4.6 mmol/L (3.5-5.1) Chloride Level 100 mmol/L (98-107) 101 mmol/L (98-107) Carbon Dioxide Level 26 mmol/L (21-32) 31 mmol/L (21-32) Anion Gap 11 (6-14) 4 (6-14) Blood Urea Nitrogen 20 mg/dL (7-20) 16 mg/dL (7-20) Creatinine 1.1 mg/dL (0.6-1.0) 1.0 mg/dL (0.6-1.0) Estimated GFR (Cockcroft-Gault) 48.0 53.6 BUN/Creatinine Ratio 18 (6-20) Glucose Level 133 mg/dL (70-99) 117 mg/dL (70-99) Calcium Level 9.5 mg/dL (8.5-10.1) 8.8 mg/dL (8.5-10.1) Total Bilirubin 0.8 mg/dL (0.2-1.0) Aspartate Amino Transf (AST/SGOT) 34 U/L (15-37) Alanine Aminotransferase (ALT/SGPT) 37 U/L (14-59) Alkaline Phosphatase 54 U/L (46-116) Troponin I Quantitative < 0.017 ng/mL (0.000-0.055) Total Protein 6.9 g/dL (6.4-8.2) Albumin 3.8 g/dL (3.4-5.0) Albumin/Globulin Ratio 1.2 (1.0-1.7) SARS-CoV-2 Antigen (Rapid) Negative (NEGATIVE) Laboratory Tests Test 04/14/20 13:25 04/14/20 15:00 04/15/20 04:10 White Blood Count 17.9 x10^3/uL (4.0-11.0) 6.7 x10^3/uL (4.0-11.0) Red Blood Count 4.26 x10^6/uL (3.50-5.40) 3.65 x10^6/uL (3.50-5.40) Hemoglobin 12.8 g/dL (12.0-15.5) 11.4 g/dL (12.0-15.5) Hematocrit 38.5 % (36.0-47.0) 33.2 % (36.0-47.0) Mean Corpuscular Volume 91 fL (79-100) 91 fL (79-100) Mean Corpuscular Hemoglobin 30 pg (25-35) 31 pg (25-35) Mean Corpuscular Hemoglobin Concent 33 g/dL (31-37) 34 g/dL (31-37) Red Cell Distribution Width 13.5 % (11.5-14.5) 13.0 % (11.5-14.5) Platelet Count 200 x10^3/uL (140-400) 156 x10^3/uL (140-400) Neutrophils (%) (Auto) 84 % (31-73) 64 % (31-73) Lymphocytes (%) (Auto) 10 % (24-48) 23 % (24-48) Monocytes (%) (Auto) 5 % (0-9) 12 % (0-9) Eosinophils (%) (Auto) 1 % (0-3) 1 % (0-3) Basophils (%) (Auto) 0 % (0-3) 0 % (0-3) Neutrophils # (Auto) 15.1 x10^3/uL (1.8-7.7) 4.2 x10^3/uL (1.8-7.7) Lymphocytes # (Auto) 1.7 x10^3/uL (1.0-4.8) 1.6 x10^3/uL (1.0-4.8) Monocytes # (Auto) 1.0 x10^3/uL (0.0-1.1) 0.8 x10^3/uL (0.0-1.1) Eosinophils # (Auto) 0.1 x10^3/uL (0.0-0.7) 0.0 x10^3/uL (0.0-0.7) Basophils # (Auto) 0.1 x10^3/uL (0.0-0.2) 0.0 x10^3/uL (0.0-0.2) Segmented Neutrophils % 76 % (35-66) Band Neutrophils % 6 % (0-9) Lymphocytes % 15 % (24-48) Monocytes % 3 % (0-10) Toxic Granulation Slight Platelet Estimate Adequate (ADEQUATE) Prothrombin Time 13.7 SEC (11.7-14.0) Prothromb Time International Ratio 1.1 (0.8-1.1) Activated Partial Thromboplast Time 27 SEC (24-38) Sodium Level 137 mmol/L (136-145) 136 mmol/L (136-145) Potassium Level 3.8 mmol/L (3.5-5.1) 4.6 mmol/L (3.5-5.1) Chloride Level 100 mmol/L (98-107) 101 mmol/L (98-107) Carbon Dioxide Level 26 mmol/L (21-32) 31 mmol/L (21-32) Anion Gap 11 (6-14) 4 (6-14) Blood Urea Nitrogen 20 mg/dL (7-20) 16 mg/dL (7-20) Creatinine 1.1 mg/dL (0.6-1.0) 1.0 mg/dL (0.6-1.0) Estimated GFR (Cockcroft-Gault) 48.0 53.6 BUN/Creatinine Ratio 18 (6-20) Glucose Level 133 mg/dL (70-99) 117 mg/dL (70-99) Calcium Level 9.5 mg/dL (8.5-10.1) 8.8 mg/dL (8.5-10.1) Total Bilirubin 0.8 mg/dL (0.2-1.0) Aspartate Amino Transf (AST/SGOT) 34 U/L (15-37) Alanine Aminotransferase (ALT/SGPT) 37 U/L (14-59) Alkaline Phosphatase 54 U/L (46-116) Troponin I Quantitative < 0.017 ng/mL (0.000-0.055) Total Protein 6.9 g/dL (6.4-8.2) Albumin 3.8 g/dL (3.4-5.0) Albumin/Globulin Ratio 1.2 (1.0-1.7) SARS-CoV-2 Antigen (Rapid) Negative (NEGATIVE) Images Images Report reviewed, images independently reviewed. Comminuted intertrochanteric left hip fracture. [facility] [address] [place] [address] IMAGING REPORT Signed PATIENT: CHAPARRO HAND ACCOUNT: [id number] : 1940 LOCATION: ER AGE: 79 SEX: F EXAM STATUS: PRE ER ORD. PHYSICIAN: ANNAMARIA BANKS MD REASON: SYNCOPE, LEFT LEG PAIN PROCEDURE: LEFT FEMUR XRAY Single view chest. Single view pelvis. 2 view left hip and two-view left femur dated 04/14/2020. CLINICAL INDICATION: Syncope. Pain. FINDINGS: Single upright portable exam of the chest shows normal heart and mediastinal contours. Lungs are clear. No consolidation or pleural effusion. No pneumothorax. Calcified granuloma right upper lobe. Single view pelvis and two-view left hip show comminuted intra-articular fracture of the proximal left femur with mild superior lateral displacement and mild medial angulation at the fracture site. There is slight cortical irregularity at the superior ramus on the left. The pelvic ring is otherwise intact. Mild degenerative change of the bilateral hip joint with spondylotic change of the lower lumbar spine. 2 views left femur show intact mid and distal femoral shaft. There is mild tricompartmental degenerative change of the knee. No apparent knee joint effusion. IMPRESSION: 1. Comminuted, mildly displaced intertrochanteric fracture of the proximal left femur. 2. Slight cortical irregularity of the superior ramus may represent a small nondisplaced fracture. 3. Intact mid and distal femoral shaft. 4. No acute abnormality of the chest. Electronically signed by: Victor M Danielle MD (04/14/2020 2:17 PM) [id number] DICTATED and SIGNED BY: VICTOR M DANIELLE MD DATE: 04/14/20 1417 Assessment/Plan Assessment/Plan This 79-year-old has a displaced unstable left intertrochanteric fracture. We discussed operative versus nonoperative management. I recommend surgery. The alternative to surgery is bedrest which is generally not well tolerated and has high risks of continued pain, bedsores, pneumonia, and blood clots. Surgery is likely safer than nonoperative treatment. Risks of intramedullary nailing would include malunion, nonunion or hardware failure requiring additional surgery, bleeding, blood clots, neurovascular injury, or other potential surgical or anesthetic complications. All of her questions about surgery were answered and she desires to proceed. CONCEPCION LERMA MD Apr 15, 2020 09:16
[2020-04-15] MEDS ORDERED: [UNRECOGNIZED DRUG - REMARK] INT ART ONE (10:00)
[2020-04-15] MEDS ORDERED: ceFAZolin SODIUM IV Push 1 GM VIAL. IVP ONE (10:16)
[2020-04-15] MEDS ORDERED: SEVOFLURANE 61 TO 120 MINUTES. IH ONE (11:11)
--- NOTE | 2020-04-15 11:27 | PDOC4 ---
Operative Note Operative Note Date of Procedure: April 15, 2020 Pre-Op Diagnosis: S72.142A Displaced intertrochanteric fracture of left femur, initial encounter for closed fracture Post-Op Diagnosis: same Procedure: CPT 15106 left hip treatment of intertrochanteric femoral fracture with intramedullary implant, with interlocking screws Surgeon: Concepcion Samuels MD Hearing Aid Dispenser: Shmuel San Anesthesia Type: General EBL: 150 mL Specimens Obtained: none Complications: None Implant Company: [employer] Implants: Gamma 3 system Long Nail Kit R1.5 left 11 mm x 400 mm x 125 Gamma 3 system Lag Screw Titanium 10.5 mm x90 mm; locking screw fully threaded 5 mm x 42.5 mm INDICATION FOR PROCEDURE: This patient is 79 years old, and fell, sustaining a left hip fracture. X-rays show an unstable subtrochanteric hip fracture. The patient and I discussed the risks, benefits and alternatives of treatment. The alternative for treatment is bedrest, which I generally do not recommend. I recommended intramedullary nailing, and I talked to her about the potential risks of this, including bleeding, infection, blood clots, malunion, nonunion or other potential surgical or anesthetic complications. All of the questions about surgery were answered, and she desired to proceed. A written consent was obtained. PROCEDURE IN DETAIL: The patient was identified in the preoperative holding area. The correct left hip was marked by me. The patient was taken to the op erating room, where the patient was anesthetized by the Department of Anesthesia. Preoperative antibiotics were given intravenously. The HANA table was used and the well leg was placed in a padded lithotomy leg rogers while the foot of the left leg was placed in a traction foot boot. A time-out procedure was performed. The image intensifier was used, and a preliminary reduction p erformed. All of the images were interpreted intraoperatively by me, and the image intensifier was used throughout the case. The left hip area was prepared in sterile fashion with ChloraPrep solution and a sterile barrier Ioban hip drape was used. An incision was made over the superior aspect of the greater trochanter. A 3.2 mm guide pin was placed at the tip of the greater trochanter, and advanced into the intramedullary canal. The one step conical reamer was used over the guidewire, and a reamer sleeve was used to protect the soft tissues. A long guide pin was placed down the intramedullary canal and the length was measured. The nail length was chosen based on that measurement. The canal was sequentially reamed for a long nail until intramedullary chatter occurred. The nail diameter was chosen based on the intramedullary chatter. The chosen nail was attached to the targeting device with the Nail Holding Screw. The nail was placed down the canal on the targeting device, and the guide wire was removed. A second incision was now used over the lower part of the greater trochanter, to place a guide pin through the guide, near the center-center position of the femoral head, and measured. The tunnel for the lag screw was reamed using the cannulated Lag Screw Step Drill. The chosen lag screw was inserted using the guide and advanced until there was a low tip-apex distance, by using sequential checks on the image intensifier. Traction on the HANA table was released. A Set Screw was now placed to lock the Lag Screw. Finally, a 5.0 mm diameter Distal Cross Lock Screw was placed distally near the knee, using a freehand technique and the image intensifier, after predrilling. Satisfactory fracture reduction and hardware position was obtained using image intensifier views in multiple planes. Copious irrigation was used and the fascia was closed with #2 Vicryl. Bovie electrocautery was used for hemostasis. I used a multidrug injection for hemostasis and pain relief which includes ropivacaine, epinephrine, and morphine. My certified physical therapist assistant completed the closure with 2-0 Vicryl and hawk. A bulky sterile dressing was applied. The patient was gently transferred from the fracture table back to a hospital bed. There were no apparent complications. CONCEPCION SAMUELS MD Apr 15, 2020 11:27
[2020-04-15] MEDS ORDERED: MORPHINE SULFATE 2 MG/ML VIAL. IVP PRN (11:45)
[2020-04-15] MEDS ORDERED: POLYETHYLENE GLYCOL 3350 17 GM PACKET. PO PRN (11:45)
[2020-04-15] MEDS ORDERED: ONDANSETRON PF 4 MG/2 ML VIAL. IVP PRN (11:45)
[2020-04-15] MEDS ORDERED: DEXTROSE 50% 25 GM / 50ML DISP.SYRIN. IV PRN (11:45)
[2020-04-15] MEDS ORDERED: fentaNYL PF VIAL 100 MCG/2 ML VIAL IVP PRN (11:45)
--- NOTE | 2020-04-15 11:57 | RAD ---
FLUOROSCOPY < 1 HR History: Reason: LT HIP NAILING IN OR WITH C-ARM. / Spl. Instructions: / History: Comparison: April 14, 2020 Technique/findings: Fluoroscopy provided intraoperatively during internal fixation left intertrochanteric femur fracture. See procedure note for further details. Number of fluoroscopic images: 7 Impression: 1. Fluoroscopy provided intraoperatively during internal fixation left intertrochanteric femur fracture. Electronically signed by: Domenic Mcpherson DO (04/15/2020 11:54 AM) [facility]
[2020-04-15] MEDS ORDERED: oxyCODONE/APAP 5/325 1 TAB TABLET PO PRN (12:00)
--- NOTE | 2020-04-15 13:37 | PDOC2 ---
CONSULT Date of Consult Date of Consult DATE: 04/15/20 TIME: 13:37 Reason for Consult Reason for Consult: Preop evaluation, cardiac clearance for surgery Referring Physician Referring Physician: Dr. Samuels Identification/Chief Complaint Chief Complaint Syncope Source Source: Chart review, Patient History of Present Illness Reason for Visit: 79-year-old female apparently had a syncopal event when she was getting up from the commode, fell on her left hip and presented to ED with hip pain. She was diagnosed with intertrochanteric fracture of left femur and is being planned for surgical repair. We have been consulted for cardiac clearance. She denied any prior cardiac history. She also denied any chest pain or palpitations. Past Medical History Cardiovascular: No pertinent hx Heme/Onc: Cancer Past Surgical History Past Surgical History: Mastectomy, No pertinent history Family History Family History: Cancer Social History No ALCOHOL: none Drugs: None Lives: with Family Current Problem List Problem List Problems Medical Problems: (1) Fracture, intertrochanteric, left femur Status: Acute (2) Syncope Status: Acute Current Medications Current Medications Current Medications Ondansetron HCl (Zofran) 4 mg PRN Q8HRS PRN IV NAUSEA/VOMITING Last administered on 04/14/20at 14:18; Start 04/14/20 at 14:15; Stop 04/14/20 at 20:34; Status DC Morphine Sulfate (Morphine Sulfate) 2 mg PRN Q2HR PRN IV PAIN Last administered on 04/15/20at 07:01; Start 04/14/20 at 14:15; Stop 04/15/20 at 11:50; Status DC Morphine Sulfate (Morphine Sulfate) 4 mg 1X ONCE IV Last administered on 04/14/20at 15:08; Start 04/14/20 at 15:15; Stop 04/14/20 at 15:16; Status DC Ondansetron HCl (Zofran) 4 mg PRN Q4HRS PRN IV NAUSEA/VOMITING; Start 04/14/20 at 20:30; Stop 04/15/20 at 11:51; Status DC Psyllium Hydrophilic Mucilloid (Metamucil Fiber Packet) 1 pkt DAILY PO ; Start 04/15/20 at 09:00 Polyethylene Glycol (miraLAX PACKET) 17 gm PRN DAILY PRN PO CONSTIPATION 1ST CHOICE; Start 04/14/20 at 20:30 Senna/Docusate Sodium (Senna Plus) 2 tab PRN BID PRN PO CONSTIPATION 2ND CHOICE; Start 04/14/20 at 20:30 Acetaminophen (Tylenol) 650 mg PRN Q6HRS PRN PO TEMP > 100.3'F; Start 04/14/20 at 20:30 Tramadol HCl (Ultram) 50 mg PRN Q6HRS PRN PO PAIN; Start 04/14/20 at 20:30 Enoxaparin Sodium (Lovenox 40mg Syringe) 40 mg Q24H SQ ; Start 04/15/20 at 21:00 Potassium Chloride/Dextrose/ Sod Cl 1,000 ml @ 80 mls/hr 1X ONCE IV Last administered on 04/14/20at 21:41; Start 04/14/20 at 21:00; Stop 04/15/20 at 09:29; Status DC Ondansetron HCl (Zofran) 4 mg PRN Q6HRS PRN IV NAUSEA/VOMITING; Start 04/15/20 at 07:00; Stop 04/15/20 at 16:00 Fentanyl Citrate (Fentanyl 2ml Vial) 25 mcg PRN Q5MIN PRN IV MILD PAIN 1-3; Start 04/15/20 at 07:00; Stop 04/15/20 at 16:00 Fentanyl Citrate (Fentanyl 2ml Vial) 50 mcg PRN Q5MIN PRN IV MODERATE TO SEVERE PAIN; Start 04/15/20 at 07:00; Stop 04/15/20 at 16:00 Morphine Sulfate (Morphine Sulfate) 1 mg PRN Q10MIN PRN IV SEVERE PAIN 7-10; Start 04/15/20 at 07:00; Stop 04/15/20 at 16:00 Ringer's Solution 1,000 ml @ 30 mls/hr Q24H IV Last administered on 04/15/20at 07:00; Start 04/15/20 at 07:00; Stop 04/15/20 at 18:59 Lidocaine HCl (Xylocaine-Mpf 1% 2ml Vial) 2 ml PRN 1X PRN ID PRIOR TO IV START; Start 04/15/20 at 07:00; Stop 04/15/20 at 16:00 Hydromorphone HCl (Dilaudid) 0.5 mg PRN Q10MIN PRN IV SEV PAIN, Second choice; Start 04/15/20 at 07:00; Stop 04/15/20 at 16:00 Prochlorperazine Edisylate (Compazine) 5 mg PACU PRN PRN IV NAUSEA, MRX1; Start 04/15/20 at 07:00; Stop 04/15/20 at 16:00 Propofol (Diprivan) 200 mg STK-MED ONCE IV ; Start 04/15/20 at 08:48; Stop 04/15/20 at 08:48; Status DC Lidocaine HCl (Lidocaine Pf 2% Vial) 5 ml STK-MED ONCE .ROUTE ; Start 04/15/20 at 08:48; Stop 04/15/20 at 08:48; Status DC Dexamethasone Sodium Phosphate (Decadron) 4 mg STK-MED ONCE .ROUTE ; Start 04/15/20 at 08:48; Stop 04/15/20 at 08:48; Status DC Ondansetron HCl (Zofran) 4 mg STK-MED ONCE .ROUTE ; Start 04/15/20 at 08:48; Stop 04/15/20 at 08:49; Status DC Ephedrine Sulfate (ePHEDrine PF IN SALINE SYRINGE) 50 mg STK-MED ONCE IV ; Start 04/15/20 at 08:48; Stop 04/15/20 at 08:49; Status DC Phenylephrine HCl (PHENYLEPHRINE in 0.9% NACL PF) 1 mg STK-MED ONCE IV ; Start 04/15/20 at 08:48; Stop 04/15/20 at 08:49; Status DC Glycopyrrolate (Robinul) 1 mg STK-MED ONCE .ROUTE ; Start 04/15/20 at 08:49; Stop 04/15/20 at 08:49; Status DC Fentanyl Citrate (Fentanyl 2ml Vial) 100 mcg STK-MED ONCE .ROUTE ; Start 04/15/20 at 08:49; Stop 04/15/20 at 08:49; Status DC Succinylcholine Chloride (Anectine) 200 mg STK-MED ONCE .ROUTE ; Start 04/15/20 at 08:50; Stop 04/15/20 at 08:50; Status DC Ropivacaine 53.3 ml/Epinephrine HCl 0.6 mg/ Morphine Sulfate 5 mg/Sodium Chloride 100 ml @ 100 mls/hr 1X ONCE INT ART Last administered on 04/15/20at 10:51; Start 04/15/20 at 10:00; Stop 04/15/20 at 10:59; Status DC Cefazolin Sodium/ Dextrose 50 ml @ 100 mls/hr 1X PREOP PRN IV SEE COMMENTS; Start 04/15/20 at 09:30; Stop 04/15/20 at 13:00; Status DC Ropivacaine 53.3 ml/Epinephrine HCl 0.6 mg/ Morphine Sulfate 5 mg/Sodium Chlorid e 100 ml @ 100 mls/hr 1X ONCE INT ART ; Start 04/16/20 at 06:00; Stop 04/16/20 at 06:59; Status UNV Cefazolin Sodium (Ancef) 1 gm STK-MED ONCE IVP ; Start 04/15/20 at 10:16; Stop 04/15/20 at 10:17; Status DC Sevoflurane (Ultane) 60 ml STK-MED ONCE IH ; Start 04/15/20 at 11:11; Stop 04/15/20 at 11:11; Status DC Morphine Sulfate (Morphine Sulfate) 2 mg PRN Q1HR PRN IVP PAIN; Start 04/15/20 at 11:45 Fentanyl Citrate (Fentanyl 2ml Vial) 25 mcg PRN Q1HR PRN IVP PAIN; Start 04/15/20 at 11:45 Multivitamins (Thera M Plus) 1 tab DAILY PO ; Start 04/16/20 at 09:00 Senna/Docusate Sodium (Senna Plus) 1 tab DAILY PO ; Start 04/16/20 at 09:00 Polyethylene Glycol (miraLAX PACKET) 17 gm PRN DAILY PRN PO CONSTIPATION; Start 04/15/20 at 11:45; Status Cancel Vitamin D (Vitamin D3) 1,000 unit DAILY PO ; Start 04/16/20 at 09:00 Sodium Chloride 1,000 ml @ 75 mls/hr [id number] IV ; Start 04/15/20 at 14:00 Ondansetron HCl (Zofran) 4 mg PRN Q4HRS PRN IVP NAUSEA/VOMITING; Start 04/15/20 at 11:45 Aspirin (Yosef Aspirin) 325 mg BID PO ; Start 04/15/20 at 21:00; Stop 05/15/20 at 20:59 Magnesium Hydroxide (Milk Of Magnesia) 2,400 mg 1X PRN PRN PO CONSTIPATION; Start 04/16/20 at 06:00; Stop 04/16/20 at 11:59 Bisacodyl (Dulcolax Supp) 10 mg 1X PRN PRN VA CONSTIPATION; Start 04/16/20 at 16:00; Stop 04/16/20 at 19:00 Dextrose (Dextrose 50%-Water Syringe) 12.5 gm PRN Q15MIN PRN IV SEE COMMENTS; Start 04/15/20 at 11:45 Cefazolin Sodium/ Dextrose 50 ml @ 100 mls/hr Q6H IV ; Start 04/15/20 at 16:00; Stop 04/16/20 at 04:29 Oxycodone/ Acetaminophen (Percocet 5/325) 1 tab PRN Q4HRS PRN PO UNRESOLVED PAIN; Start 04/15/20 at 11:45 Oxycodone/ Acetaminophen (Percocet 5/325) 2 tab PRN Q4HRS PRN PO UNRESOLVED PAIN; Start 04/15/20 at 12:00 Allergies Allergies: Coded Allergies: No Known Drug Allergies (Unverified , 10/10/19) ROS PSYCHOLOGICAL ROS: No: Hallucinations Eyes: No Loss of vision HEENT: No: Epistaxis Respiratory: No: Hemoptysis, Shortness of breath Cardiovascular: No Chest Pain Gastrointestinal: Yes Nausea Neurological: No Seizures Skin: No Rash Physical Exam General: No acute distress HEENT: Atraumatic Lungs: Clear to auscultation Heart: Regular rate Abdomen: Soft Extremities: No edema Psych/Mental Status: Mood NL Vitals VITALS Vital Signs Date Time Temp Pulse Resp B/P (MAP) Pulse Ox O2 Delivery O2 Flow Rate FiO2 04/15/20 12:59 99.5 110 16 86/57 97 Nasal Cannula 2 99.5 Labs Labs Laboratory Tests Test 04/14/20 13:25 04/14/20 15:00 04/15/20 04:10 White Blood Count 17.9 x10^3/uL (4.0-11.0) 6.7 x10^3/uL (4.0-11.0) Red Blood Count 4.26 x10^6/uL (3.50-5.40) 3.65 x10^6/uL (3.50-5.40) Hemoglobin 12.8 g/dL (12.0-15.5) 11.4 g/dL (12.0-15.5) Hematocrit 38.5 % (36.0-47.0) 33.2 % (36.0-47.0) Mean Corpuscular Volume 91 fL (79-100) 91 fL (79-100) Mean Corpuscular Hemoglobin 30 pg (25-35) 31 pg (25-35) Mean Corpuscular Hemoglobin Concent 33 g/dL (31-37) 34 g/dL (31-37) Red Cell Distribution Width 13.5 % (11.5-14.5) 13.0 % (11.5-14.5) Platelet Count 200 x10^3/uL (140-400) 156 x10^3/uL (140-400) Neutrophils (%) (Auto) 84 % (31-73) 64 % (31-73) Lymphocytes (%) (Auto) 10 % (24-48) 23 % (24-48) Monocytes (%) (Auto) 5 % (0-9) 12 % (0-9) Eosinophils (%) (Auto) 1 % (0-3) 1 % (0-3) Basophils (%) (Auto) 0 % (0-3) 0 % (0-3) Neutrophils # (Auto) 15.1 x10^3/uL (1.8-7.7) 4.2 x10^3/uL (1.8-7.7) Lymphocytes # (Auto) 1.7 x10^3/uL (1.0-4.8) 1.6 x10^3/uL (1.0-4.8) Monocytes # (Auto) 1.0 x10^3/uL (0.0-1.1) 0.8 x10^3/uL (0.0-1.1) Eosinophils # (Auto) 0.1 x10^3/uL (0.0-0.7) 0.0 x10^3/uL (0.0-0.7) Basophils # (Auto) 0.1 x10^3/uL (0.0-0.2) 0.0 x10^3/uL (0.0-0.2) Segmented Neutrophils % 76 % (35-66) Band Neutrophils % 6 % (0-9) Lymphocytes % 15 % (24-48) Monocytes % 3 % (0-10) Toxic Granulation Slight Platelet Estimate Adequate (ADEQUATE) Prothrombin Time 13.7 SEC (11.7-14.0) Prothromb Time International Ratio 1.1 (0.8-1.1) Activated Partial Thromboplast Time 27 SEC (24-38) Sodium Level 137 mmol/L (136-145) 136 mmol/L (136-145) Potassium Level 3.8 mmol/L (3.5-5.1) 4.6 mmol/L (3.5-5.1) Chloride Level 100 mmol/L (98-107) 101 mmol/L (98-107) Carbon Dioxide Level 26 mmol/L (21-32) 31 mmol/L (21-32) Anion Gap 11 (6-14) 4 (6-14) Blood Urea Nitrogen 20 mg/dL (7-20) 16 mg/dL (7-20) Creatinine 1.1 mg/dL (0.6-1.0) 1.0 mg/dL (0.6-1.0) Estimated GFR (Cockcroft-Gault) 48.0 53.6 BUN/Creatinine Ratio 18 (6-20) Glucose Level 133 mg/dL (70-99) 117 mg/dL (70-99) Calcium Level 9.5 mg/dL (8.5-10.1) 8.8 mg/dL (8.5-10.1) Total Bilirubin 0.8 mg/dL (0.2-1.0) Aspartate Amino Transf (AST/SGOT) 34 U/L (15-37) Alanine Aminotransferase (ALT/SGPT) 37 U/L (14-59) Alkaline Phosphatase 54 U/L (46-116) Troponin I Quantitative < 0.017 ng/mL (0.000-0.055) Total Protein 6.9 g/dL (6.4-8.2) Albumin 3.8 g/dL (3.4-5.0) Albumin/Globulin Ratio 1.2 (1.0-1.7) SARS-CoV-2 Antigen (Rapid) Negative (NEGATIVE) Laboratory Tests Test 04/14/20 15:00 04/15/20 04:10 SARS-CoV-2 Antigen (Rapid) Negative (NEGATIVE) White Blood Count 6.7 x10^3/uL (4.0-11.0) Red Blood Count 3.65 x10^6/uL (3.50-5.40) Hemoglobin 11.4 g/dL (12.0-15.5) Hematocrit 33.2 % (36.0-47.0) Mean Corpuscular Volume 91 fL (79-100) Mean Corpuscular Hemoglobin 31 pg (25-35) Mean Corpuscular Hemoglobin Concent 34 g/dL (31-37) Red Cell Distribution Width 13.0 % (11.5-14.5) Platelet Count 156 x10^3/uL (140-400) Neutrophils (%) (Auto) 64 % (31-73) Lymphocytes (%) (Auto) 23 % (24-48) Monocytes (%) (Auto) 12 % (0-9) Eosinophils (%) (Auto) 1 % (0-3) Basophils (%) (Auto) 0 % (0-3) Neutrophils # (Auto) 4.2 x10^3/uL (1.8-7.7) Lymphocytes # (Auto) 1.6 x10^3/uL (1.0-4.8) Monocytes # (Auto) 0.8 x10^3/uL (0.0-1.1) Eosinophils # (Auto) 0.0 x10^3/uL (0.0-0.7) Basophils # (Auto) 0.0 x10^3/uL (0.0-0.2) Sodium Level 136 mmol/L (136-145) Potassium Level 4.6 mmol/L (3.5-5.1) Chloride Level 101 mmol/L (98-107) Carbon Dioxide Level 31 mmol/L (21-32) Anion Gap 4 (6-14) Blood Urea Nitrogen 16 mg/dL (7-20) Creatinine 1.0 mg/dL (0.6-1.0) Estimated GFR (Cockcroft-Gault) 53.6 Glucose Level 117 mg/dL (70-99) Calcium Level 8.8 mg/dL (8.5-10.1) Assessment/Plan Assessment/Plan 1. s/p Fall with intertrochanteric fracture left femur. Ortho planning surgical fixation today. She seems to be stable from CV standpoint. Okay to proceed with ORIF 2. Syncope most probably vasovagal. CT head did not show any acute intracranial process. Telemetry did not show any significant arrhythmias so far. Check 2D echo to assess LV systolic function. We will consider outpatient event monitor. Thank you for your consultation ADAL MIRELES MD Apr 15, 2020 13:37
[2020-04-15] MEDS: IV 1/2 NORMAL SALINE 1,000 ML IV SCH (14:00)
[2020-04-15] MEDS: traMADol 50 MG TABLET PO PRN (15:02)
[2020-04-15 15:05] VITALS: BP 104/56
[2020-04-15] MEDS: oxyCODONE/APAP 5/325 1 TAB TABLET PO PRN ×2 (17:57→22:12)
[2020-04-15 19:00] VITALS: BP 116/54
[2020-04-15] MEDS: ENOXAPARIN 40 MG/0.4 ML SYRINGE. SQ SCH (21:08)
[2020-04-15] MEDS: ASPIRIN 325 MG TABLET PO SCH (21:08)
[2020-04-15 22:22] VITALS: BP 117/56
[2020-04-16] VITALS (9 sets, daily range): BP systolic 96–138; BP diastolic 42–63
[2020-04-16] MEDS: oxyCODONE/APAP 5/325 1 TAB TABLET PO PRN ×3 (03:46→20:23)
[2020-04-16 05:25] LABS: BASO % 0 % (0-3); EOS % 0 % (0-3); HEMATOCRIT 22.4 % (36.0-47.0); HEMOGLOBIN 7.5 g/dL (12.0-15.5); LYMPH % 15 % (24-48); MEAN CORPUSCULAR HEMOGLOBIN 30 pg (25-35); MEAN CORPUSCULAR HGB CONC 34 g/dL (31-37); MEAN CORPUSCULAR VOLUME 90 fL (79-100); MONO # 0.8 x10^3/uL (0.0-1.1); MONO % 11 % (0-9); NEUT # 5.4 x10^3/uL (1.8-7.7); NEUT % 75 % (31-73); PLATELET COUNT 121 x10^3/uL (140-400); RED BLOOD COUNT 2.47 x10^6/uL (3.50-5.40); RED CELL DISTRIBUTION WIDTH 13.3 % (11.5-14.5); WHITE BLOOD COUNT 7.2 x10^3/uL (4.0-11.0)
[2020-04-16 05:44] LABS: CALCIUM 8.1 mg/dL (8.5-10.1); CREATININE 0.9 mg/dL (0.6-1.0); GFR 60.6; POTASSIUM 4.8 mmol/L (3.5-5.1)
[2020-04-16] MEDS: IV 1/2 NORMAL SALINE 1,000 ML IV SCH ×2 (05:58→16:42)
[2020-04-16] MEDS ORDERED: MAGNESIUM HYDROXIDE 2,400 MG/30 ML ORAL.SUSP. PO PRN (06:00)
[2020-04-16] MEDS ORDERED: ROPIVacaine 0.75% PF 53.3 ML, EPINEPHrine 0.6 MG, MORPHINE PF 5 MG in IV NORMAL SALINE ... INT ART ONE (06:00)
--- NOTE | 2020-04-16 08:02 | EKG ---
[facility] [address] [place] [address] Test Date: 2020-04-14 Test Time: 13:23:02 Pat Name: CHAPARRO HAND Department: Room: Gender: F Electronic Organ Mechanic: : 1940 Requested By: ANNAMARIA BANKS Order Number: [id number] Reading MD: Measurements Intervals Schuyler Rate: 56 P: 90 GA: 168 QRS: 30 QRSD: 118 T: 39 QT: 416 QTc: 404 Interpretive Statements SINUS RHYTHM INCOMPLETE RIGHT BUNDLE BRANCH BLOCK T ABNORMALITY IN ANTERIOR LEADS ABNORMAL ECG RI6.01 No previous ECG available for comparison
[2020-04-16] MEDS: PSYLLIUM HUSK (SUGAR FREE) 1 PKT PACKET PO SCH (08:31)
[2020-04-16] MEDS: CHOLECALCIFEROL (VITAMIN D3) 1,000 UNIT TABLET PO SCH (08:31)
[2020-04-16] MEDS: SENNOSIDES/DOCUSATE 8.6/50MG TABLET. PO SCH (08:31)
[2020-04-16] MEDS: MULTIVITAMIN with MINERAL TABLET. PO SCH (08:31)
[2020-04-16] MEDS: ASPIRIN 325 MG TABLET PO SCH ×2 (08:31→20:23)
--- NOTE | 2020-04-16 12:27 | PDOC ---
[facility] PROGRESS NOTE Date of Service DOS: DATE: 04/16/20 TIME: 12:15 Chief Complaint Chief Complaint Fall at home - from toilet, possibly had vasovagal syncope, vs accidental fall. Comminuted, mildly displaced intertrochanteric fracture of the proximal left femur -bedrest. Slight cortical irregularity of the superior ramus may represent a small nondisplaced fracture. Right bundle branch block - nonpathologic EKG finding, can be associated with chronic respiratory disease, however patient notes she is non-smoker. Acute encephalopathy - negative CT head. Leukocytosis -likely reactive secondary to trauma. RODGER - vasomotor nephropathy likely 2/2 acute trauma History of Present Illness History of Present Illness 04/16/2020 Patient is seen and examined ORIF - POD 1 Patient is resting comfortably with feet elevated 3rd Midnight before SNU Charts reviewed Discussed with RN Ms Mobley is a 79-year-old female with no known PMHx who presents to ED via private vehicle c/o left upper leg pain after a fall after getting off the toilet in the morning at home prior to presentation. She was a bit confused but denied any loss of consciousness, head or neck pain. Left leg is rotated and shortened. She initially rated pain an 8/10 which was relieved with IV morphine and immobility. Due to patient's confusion and inability to fully relate her past medical history or surgical history a syncopal event was of concern the physician in patient underwent a CT head which negative for acute abnormalities. Left hip x-ray shows comminuted, mildly displaced intertrochanteric fracture of the proximal left femur and slight cortical irregularity of the superior ramus which may represent a small nondisplaced fracture. CXR with calcified granuloma right upper lobe, otherwise no acute abnormalities. Labs significant for WBC 17.9, Hb 12.8, platelets 200 INR 1.1, NA 137, K3.8, BUN 20, CR 1.1, glucose 133, troponin negative. EKG appears to be sinus bradycardia with a rate of 56 normal axis right bundle branch block nonspecific ST changes She did have a David catheter inserted and a rapid COVID-19 test sent which returned negative. Admitted for further treatment. Afebrile. No overnight events. WBC decreased to 6.7, Hb 11.4. CR improved to 1. No telemetry events. Her son is bedside visiting. They are concerned that we had a small power outage today. Vitals/I&O Vitals/I&O: Vital Signs Date Time Temp Pulse Resp B/P (MAP) Pulse Ox O2 Delivery O2 Flow Rate FiO2 04/16/20 10:46 97.8 85 18 96/42 (60) 92 Nasal Cannula 2.0 97.8 I & O 04/15/20 04/15/20 04/16/20 15:00 23:00 07:00 Intake Total 700 ml 120 ml 200 ml Output Total 400 ml 750 ml 400 ml Balance 300 ml -630 ml -200 ml Physical Exam General: Alert, Oriented X3, Cooperative, No acute distress Heart: Regular rate Lungs: Clear Abdomen: Soft Extremities: No edema Skin: No breakdown Labs Labs: Laboratory Tests Test 04/16/20 04:45 White Blood Count 7.2 x10^3/uL (4.0-11.0) Red Blood Count 2.47 x10^6/uL (3.50-5.40) Hemoglobin 7.5 g/dL (12.0-15.5) Hematocrit 22.4 % (36.0-47.0) Mean Corpuscular Volume 90 fL (79-100) Mean Corpuscular Hemoglobin 30 pg (25-35) Mean Corpuscular Hemoglobin Concent 34 g/dL (31-37) Red Cell Distribution Width 13.3 % (11.5-14.5) Platelet Count 121 x10^3/uL (140-400) Neutrophils (%) (Auto) 75 % (31-73) Lymphocytes (%) (Auto) 15 % (24-48) Monocytes (%) (Auto) 11 % (0-9) Eosinophils (%) (Auto) 0 % (0-3) Basophils (%) (Auto) 0 % (0-3) Neutrophils # (Auto) 5.4 x10^3/uL (1.8-7.7) Lymphocytes # (Auto) 1.0 x10^3/uL (1.0-4.8) Monocytes # (Auto) 0.8 x10^3/uL (0.0-1.1) Eosinophils # (Auto) 0.0 x10^3/uL (0.0-0.7) Basophils # (Auto) 0.0 x10^3/uL (0.0-0.2) Sodium Level 135 mmol/L (136-145) Potassium Level 4.8 mmol/L (3.5-5.1) Chloride Level 100 mmol/L (98-107) Carbon Dioxide Level 29 mmol/L (21-32) Anion Gap 6 (6-14) Blood Urea Nitrogen 13 mg/dL (7-20) Creatinine 0.9 mg/dL (0.6-1.0) Estimated GFR (Cockcroft-Gault) 60.6 Glucose Level 122 mg/dL (70-99) Calcium Level 8.1 mg/dL (8.5-10.1) Review of Systems Review of Systems: All systems otherwise negative Assessment and Plan Assessmemt and Plan Problems Medical Problems: (1) Fracture, intertrochanteric, left femur Status: Acute (2) Syncope Status: Acute Assessment Fall at home - from toilet, possibly had vasovagal syncope, vs accidental fall. Comminuted, mildly displaced intertrochanteric fracture of the proximal left femur -bedrest. Slight cortical irregularity of the superior ramus may represent a small nondisp laced fracture. Right bundle branch block - nonpathologic EKG finding, can be associated with chronic respiratory disease. Acute encephalopathy - negative CT head. Leukocytosis -likely reactive secondary to trauma. RODGER - vasomotor nephropathy likely 2/2 acute trauma Plan Trend Hgb Compression stockings PT/OT pending DVT prophylaxis FULL CODE Discharge disposition to SNU in a.m Comment Review of Relevant I have reviewed the following items heidi (where applicable) has been applied. Medications: Current Medications Medications (Trade) Dose Ordered Sig/Bobby Route PRN Reason Start Time Stop Time Status Last Admin Dose Admin Enoxaparin Sodium (Lovenox 40mg Syringe) 40 mg Q24H SQ 04/15/20 21:00 04/15/20 21:08 Multivitamins (Thera M Plus) 1 tab DAILY PO 04/16/20 09:00 04/16/20 08:31 Senna/Docusate Sodium (Senna Plus) 1 tab DAILY PO 04/16/20 09:00 04/16/20 08:31 Vitamin D (Vitamin D3) 1,000 unit DAILY PO 04/16/20 09:00 04/16/20 08:31 Sodium Chloride 1,000 ml @ 75 mls/hr [id number] IV 04/15/20 14:00 04/16/20 05:58 Aspirin (Yosef Aspirin) 325 mg BID PO 04/15/20 21:00 05/15/20 20:59 04/16/20 08:31 Cefazolin Sodium/ Dextrose 50 ml @ 100 mls/hr Q6H IV 04/15/20 16:00 04/16/20 04:29 DC 04/16/20 03:47 Justicifation of Admission Dx: Justifications for Admission: Justification of Admission Dx: Yes CARL GARBER III DO Apr 16, 2020 12:27
[2020-04-16] MEDS: traMADol 50 MG TABLET PO PRN (13:42)
--- NOTE | 2020-04-16 13:59 | NUR ---
SS following for discharge planning. SS reviewed pt chart and discussed with pt RN. Pt is from home with family and is currently requiring oxygen. Pt has left hip surgery. COVID19 negative. PT recommended shelter unit. SS met with pt and family in room to discuss discharge planning and shelter unit. Pt requesting to go to [facility], ; fax [phone]. SS phoned and faxed referral to [facility] as requested. SS will await acceptance decision and will proceed accordingly.
[2020-04-16 14:43] LABS: BASO % 0 % (0-3); EOS % 0 % (0-3); LYMPH # 1.4 x10^3/uL (1.0-4.8); LYMPH % 18 % (24-48); MEAN CORPUSCULAR HEMOGLOBIN 32 pg (25-35); MEAN CORPUSCULAR HGB CONC 35 g/dL (31-37); MEAN CORPUSCULAR VOLUME 90 fL (79-100); MONO # 0.9 x10^3/uL (0.0-1.1); MONO % 12 % (0-9); NEUT # 5.4 x10^3/uL (1.8-7.7); NEUT % 70 % (31-73); PLATELET COUNT 107 x10^3/uL (140-400); RED BLOOD COUNT 2.12 x10^6/uL (3.50-5.40); RED CELL DISTRIBUTION WIDTH 12.9 % (11.5-14.5); WHITE BLOOD COUNT 7.7 x10^3/uL (4.0-11.0)
[2020-04-16 14:55] LABS: HEMATOCRIT 19.1 % (36.0-47.0); HEMOGLOBIN 6.7 g/dL (12.0-15.5)
--- NOTE | 2020-04-16 15:00 | NUR ---
Dr. Samuels notified of drop in HGB. Orders received for femur x-ray. Will continue to monitor.
[2020-04-16] MEDS ORDERED: BISACODYL 10 MG SUPP.RECT. PR PRN (16:00)
--- NOTE | 2020-04-16 17:07 | RAD ---
INDICATION: Reason: HGB drop in POD1 - POST OP / Spl. Instructions: / History: COMPARISON: One day prior IMPRESSION: Left femur: 4 views obtained. Intramedullary francisco is seen within the femur traversing the fracture site at proximal femur. Soft tissue swelling and air is seen within the adjacent soft tissues as typically seen postoperatively. Fullness of the soft tissues within the popliteal fossa. Could be from edema of the soft tissues or fluid collection in the area but nonspecific appearance on plain film Electronically signed by: Tyson Otero MD (04/16/2020 5:04 PM) [id number]
[2020-04-16] MEDS: ENOXAPARIN 40 MG/0.4 ML SYRINGE. SQ SCH (20:23)
[2020-04-16 20:32] LABS: HEMATOCRIT 24.7 % (36.0-47.0); HEMOGLOBIN 8.5 g/dL (12.0-15.5)
[2020-04-17 03:12] VITALS: BP 140/59
[2020-04-17] MEDS: IV 1/2 NORMAL SALINE 1,000 ML IV SCH (05:40)
[2020-04-17 06:44] LABS: BASO % 1 % (0-3); EOS # 0.1 x10^3/uL (0.0-0.7); EOS % 2 % (0-3); HEMATOCRIT 22.4 % (36.0-47.0); HEMOGLOBIN 7.6 g/dL (12.0-15.5); LYMPH # 0.9 x10^3/uL (1.0-4.8); LYMPH % 20 % (24-48); MEAN CORPUSCULAR HEMOGLOBIN 30 pg (25-35); MEAN CORPUSCULAR HGB CONC 34 g/dL (31-37); MEAN CORPUSCULAR VOLUME 89 fL (79-100); MONO # 0.5 x10^3/uL (0.0-1.1); MONO % 12 % (0-9); NEUT # 2.8 x10^3/uL (1.8-7.7); NEUT % 65 % (31-73); PLATELET COUNT 89 x10^3/uL (140-400); RED BLOOD COUNT 2.52 x10^6/uL (3.50-5.40); RED CELL DISTRIBUTION WIDTH 13.9 % (11.5-14.5); WHITE BLOOD COUNT 4.3 x10^3/uL (4.0-11.0)
[2020-04-17 06:47] LABS: CREATININE 0.8 mg/dL (0.6-1.0); GFR 69.4
[2020-04-17 07:00] VITALS: BP 125/58
--- NOTE | 2020-04-17 08:18 | CARD ---
MR#: [id number] Date of Study: 04/16/2020 Ordering Physician: ADAL MIRELES, Referring Physician: ADAL MIRELES, Tech: Bel Palmer APPROVED REPORT EXAM: Two-dimensional and M-mode echocardiogram with Doppler and color Doppler. Other Information Quality : AverageHR: 92bpm Technically limited study due to body habitus. INDICATION Syncope 2D DIMENSIONS RVDd2.7 (2.9-3.5cm)Left Atrium(2D)2.9 (1.6-4.0cm) IVSd1.2 (0.7-1.1cm)Aortic Root(2D)3.0 (2.0-3.7cm) LVDd4.8 (3.9-5.9cm)LVOT Diameter2.0 (1.8-2.4cm) PWd1.1 (0.7-1.1cm)LVDs3.0 (2.5-4.0cm) FS (%) 38.4 %SV73.8 ml LVEF(%)68.6 (>50%) Aortic Valve AoV Peak Jayson.181.4cm/sAoV VTI32.3cm AO Peak GR.13.2mmHgLVOT VTI 24.83cm AO Mean GR.6mmHg Mitral Valve MV E Beiffpbj55.3cm/sMV E Peak Gr.3mmHg MV DECEL [id number] A Emducsab62.2cm/s MV E Mean Gr.1mmHgE/A Ratio0.7 TDI Lateral E' P. V6.56cm/sMedial E' P. V6.69cm/s E/Lateral E'7.8E/Medial E'7.7 Tricuspid Valve TR P. [id number]/sTR Peak Gr.16mmHg Pulmonary Vein S1 Nwlwpofw10.0cm/sS2 Vycxaaxr54.93cm/s D2 Ryunwbci76.9cm/sPVa [id number] LEFT VENTRICLE The left ventricle is normal size. There is mild concentric left ventricular hypertrophy. The left ve ntricular systolic function is normal and the ejection fraction is within normal range. EF 55% There is normal LV segmental wall motion. Tissue Doppler imaging reveals moderate left ventricular diastoli c dysfunction. No left ventricle thrombus noted on this study. RIGHT VENTRICLE The right ventricle is mildly dilated. There is normal right ventricular wall thickness. The right ve ntricular systolic function is normal. ATRIA The left atrium is moderately dilated. The right atrium is moderately dilated. The interatrial septum is intact with no evidence for an atrial septal defect or patent foramen ovale as noted on 2-D or Do ppler imaging. AORTIC VALVE The aortic valve is not well visualized. Doppler and Color Flow revealed no significant aortic regurg itation. There is no significant aortic valvular stenosis. MITRAL VALVE The mitral valve is normal in structure and function. There is no evidence of mitral valve prolapse. There is no mitral valve stenosis. Doppler and Color Flow revealed no mitral valve regurgitation note d. TRICUSPID VALVE Not well visualized. Doppler and Color Flow revealed trace tricuspid regurgitation with an estimated PAP of 31 mmHg. There is no tricuspid valve stenosis. PULMONIC VALVE The pulmonic valve is not well visualized. Doppler and Color Flow revealed no pulmonic valvular regur gitation. There is no pulmonic valvular stenosis. GREAT VESSELS The aortic root is normal in size. The IVC is normal in size and collapses >50% with inspiration. PERICARDIAL EFFUSION There is no evidence of significant pericardial effusion. Critical Notification Critical Value: No <Conclusion> The left ventricular systolic function is normal and the ejection fraction is within normal range. EF 55% There is normal LV segmental wall motion. Technically difficult study, aortic valve not well visualized. Signed by : Dl Johnson, Electronically Approved : 04/17/2020 08:17:21
[2020-04-17] MEDS: ASPIRIN 325 MG TABLET PO SCH (08:42)
[2020-04-17] MEDS: SENNOSIDES/DOCUSATE 8.6/50MG TABLET. PO SCH (08:42)
[2020-04-17] MEDS: MULTIVITAMIN with MINERAL TABLET. PO SCH (08:42)
[2020-04-17] MEDS: CHOLECALCIFEROL (VITAMIN D3) 1,000 UNIT TABLET PO SCH (08:42)
[2020-04-17] MEDS: PSYLLIUM HUSK (SUGAR FREE) 1 PKT PACKET PO SCH (08:43)
[2020-04-17] MEDS: oxyCODONE/APAP 5/325 1 TAB TABLET PO PRN (09:28)
--- NOTE | 2020-04-17 09:46 | NUR ---
David catheter removed at 0930, no complications noted, we'll await spontaneous voiding.
[2020-04-17 11:00] VITALS: BP 111/54
--- NOTE | 2020-04-17 11:14 | NUR ---
The patient worked with PT and OT, noted orthostatic hypotension. Patient is symptomatic, notified Dr. Alva, order for fluid bolus received.
[2020-04-17] MEDS ORDERED: IV NORMAL SALINE 500ML BAG 500 ML IV ONE (11:15)
[2020-04-17] MEDS ORDERED: SENN-22 PO (11:53)
[2020-04-17] MEDS ORDERED: MULT1TAB90 PO (11:53)
--- NOTE | 2020-04-17 11:54 | SNU/HH DC ---
DISCHARGE ORDERS DISCHARGE INFORMATION: FINAL DIAGNOSIS Problems Medical Problems: (1) Fracture, intertrochanteric, left femur Status: Acute (2) Syncope Status: Acute CONDITION ON DISCHARGE: Stable CODE STATUS: Code Status: Full RETIREMENT: SNF STAY <30 DAYS: Yes HOSPICE: HOSPICE: No HOSPICE EVAL & TREAT: No LTAC: ADMIT TO LTAC: No POST DISCHARGE ORDERS: ACTIVITY ORDERS: Bedrest today DIET AFTER DISCHARGE: Cardiac TREATMENT/EQUIPMENT ORDERS: Physical Therapy For: Evalulation/Treatment Occupational Therapy For: Evaluation/Treatment DISCHARGE MEDICATIONS: Home Meds Active Scripts Sennosides/Docusate Sodium (SENNA-TIME S TABLET) 1 Each Tablet, 1 TAB PO DAILY for constipation for 14 Days, #14 TAB Prov:CASTLE,NIAL K III DO 04/17/20 Multivits,Ca,Minerals/Iron/Fa (THERA-M TABLET) 1 Each Tablet, 1 TAB PO DAILY for dietary, #30 TAB Prov:CASTLE,NIAL K III DO 04/17/20 CASTLE,NIAL K III DO Apr 17, 2020 11:54
--- NOTE | 2020-04-17 12:00 | PDOC ---
[employer] PROGRESS NOTE Date of Service DOS: DATE: 04/17/20 TIME: 11:54 Chief Complaint Chief Complaint Fall at home - from toilet, possibly had vasovagal syncope, vs accidental fall. Comminuted, mildly displaced intertrochanteric fracture of the proximal left femur -bedrest. Slight cortical irregularity of the superior ramus may represent a small nondisplaced fracture. Right bundle branch block - nonpathologic EKG finding, can be associated with chronic respiratory disease, however patient notes she is non-smoker. Acute encephalopathy - negative CT head. Leukocytosis -likely reactive secondary to trauma. RODGER - vasomotor nephropathy likely 2/2 acute trauma History of Present Illness History of Present Illness 04/17/2020 Patient is seen and examined ORIF POD -2 CDI dressing, swelling in L.thigh around surgery site Charts reviewed Discussed with RN 04/16/2020 Patient is seen and examined ORIF - POD 1 Patient is resting comfortably with feet elevated 3rd Midnight before SNU Charts reviewed Discussed with RN Ms Mobley is a 79-year-old female with no known PMHx who presents to ED via private vehicle c/o left upper leg pain after a fall after getting off the toilet in the morning at home prior to presentation. She was a bit confused but denied any loss of consciousness, head or neck pain. Left leg is rotated and shortened. She initially rated pain an 8/10 which was relieved with IV morphine and immobility. Due to patient's confusion and inability to fully relate her past medical history or surgical history a syncopal event was of concern the physician in patient underwent a CT head which negative for acute abnormalities. Left hip x-ray shows comminuted, mildly displaced intertrochanteric fracture of the proximal left femur and slight cortical irregularity of the superior ramus which may represent a small nondisplaced fracture. CXR with calcified granuloma right upper lobe, otherwise no acute abnormalities. Labs significant for WBC 17.9, Hb 12.8, platelets 200 INR 1.1, NA 137, K3.8, BUN 20, CR 1.1, glucose 133, troponin negative. EKG appears to be sinus bradycardia with a rate of 56 normal axis right bundle branch block nonspecific ST changes She did have a David catheter inserted and a rapid COVID-19 test sent which returned negative. Admitted for further treatment. Afebrile. No overnight events. WBC decreased to 6.7, Hb 11.4. CR improved to 1. No telemetry events. Her son is bedside visiting. They are concerned that we had a small power outage today. Vitals/I&O Vitals/I&O: Vital Signs Date Time Temp Pulse Resp B/P (MAP) Pulse Ox O2 Delivery O2 Flow Rate FiO2 04/17/20 11:00 98.2 82 16 111/54 (73) 98 Nasal Cannula 2.0 98.2 I & O 04/16/20 04/16/20 04/17/20 14:59 22:59 06:59 Intake Total 200 ml 1675 ml 0 ml Output Total 1175 ml 1300 ml Balance 200 ml 500 ml -1300 ml Physical Exam General: Alert, Oriented X3, Cooperative, No acute distress Heart: Regular rate Lungs: Clear Abdomen: Soft Extremities: No edema Skin: No breakdown Labs Labs: Laboratory Tests Test 04/16/20 14:30 04/16/20 20:25 04/17/20 06:30 White Blood Count 7.7 x10^3/uL (4.0-11.0) 4.3 x10^3/uL (4.0-11.0) Red Blood Count 2.12 x10^6/uL (3.50-5.40) 2.52 x10^6/uL (3.50-5.40) Hemoglobin 6.7 g/dL (12.0-15.5) 8.5 g/dL (12.0-15.5) 7.6 g/dL (12.0-15.5) Hematocrit 19.1 % (36.0-47.0) 24.7 % (36.0-47.0) 22.4 % (36.0-47.0) Mean Corpuscular Volume 90 fL (79-100) 89 fL (79-100) Mean Corpuscular Hemoglobin 32 pg (25-35) 30 pg (25-35) Mean Corpuscular Hemoglobin Concent 35 g/dL (31-37) 34 g/dL (31-37) Red Cell Distribution Width 12.9 % (11.5-14.5) 13.9 % (11.5-14.5) Platelet Count 107 x10^3/uL (140-400) 89 x10^3/uL (140-400) Neutrophils (%) (Auto) 70 % (31-73) 65 % (31-73) Lymphocytes (%) (Auto) 18 % (24-48) 20 % (24-48) Monocytes (%) (Auto) 12 % (0-9) 12 % (0-9) Eosinophils (%) (Auto) 0 % (0-3) 2 % (0-3) Basophils (%) (Auto) 0 % (0-3) 1 % (0-3) Neutrophils # (Auto) 5.4 x10^3/uL (1.8-7.7) 2.8 x10^3/uL (1.8-7.7) Lymphocytes # (Auto) 1.4 x10^3/uL (1.0-4.8) 0.9 x10^3/uL (1.0-4.8) Monocytes # (Auto) 0.9 x10^3/uL (0.0-1.1) 0.5 x10^3/uL (0.0-1.1) Eosinophils # (Auto) 0.0 x10^3/uL (0.0-0.7) 0.1 x10^3/uL (0.0-0.7) Basophils # (Auto) 0.0 x10^3/uL (0.0-0.2) 0.0 x10^3/uL (0.0-0.2) Sodium Level 137 mmol/L (136-145) Potassium Level 4.0 mmol/L (3.5-5.1) Chloride Level 103 mmol/L (98-107) Carbon Dioxide Level 31 mmol/L (21-32) Anion Gap 3 (6-14) Blood Urea Nitrogen 10 mg/dL (7-20) Creatinine 0.8 mg/dL (0.6-1.0) Estimated GFR (Cockcroft-Gault) 69.4 Glucose Level 103 mg/dL (70-99) Calcium Level 8.0 mg/dL (8.5-10.1) Assessment and Plan Assessmemt and Plan Problems Medical Problems: (1) Fracture, intertrochanteric, left femur Status: Acute (2) Syncope Status: Acute Assessment Fall at home - from toilet, possibly had vasovagal syncope, vs accidental fall. Comminuted, mildly displaced intertrochanteric fracture of the proximal left femur -bedrest. Slight cortical irregularity of the superior ramus may represent a small nondisplaced fracture. Right bundle branch block - nonpathologic EKG finding, can be associated with chronic respiratory disease, however patient notes she is non-smoker. Acute encephalopathy - negative CT head. Leukocytosis -likely reactive secondary to trauma. RODGER - vasomotor nephropathy likely 2/2 acute trauma Plan Trend Hgb Compression stockings PT/OT DVT prophylaxis FULL CODE Hope to discharge to SNU if alright with other doctors. Comment Review of Relevant I have reviewed the following items heidi (where applicable) has been applied. Medications: Current Medications Medications (Trade) Dose Ordered Sig/Bobby Route PRN Reason Start Time Stop Time Status Last Admin Dose Admin Sodium Chloride 500 ml @ 500 mls/hr 1X ONCE IV 04/17/20 11:15 04/17/20 12:14 04/17/20 11:21 Justicifation of Admission Dx: Justifications for Admission: Justification of Admission Dx: Yes CARL GARBER III DO Apr 17, 2020 12:00
--- NOTE | 2020-04-17 12:04 | PDOC ---
BRITTNEE KEMP TOPOLOGY TEACHER 04/17/20 1204: CARDIO Progress Notes Date and Time Date of Service 04/17/20 Time of Evaluation 1115 Subjective Subjective: No Chest Pain, No shortness of breath, No Palpitations Vitals Vitals Vital Signs Date Time Temp Pulse Resp B/P (MAP) Pulse Ox O2 Delivery O2 Flow Rate FiO2 04/17/20 11:00 98.2 82 16 111/54 (73) 98 Nasal Cannula 2.0 98.2 Weight Weight [ ] Input and Output Intake and Output Intake and Output 04/17/20 07:00 Intake Total 1875 ml Output Total 2475 ml Balance -600 ml Intake Oral 325 ml IV Total 850 ml Blood Product IV Normal Saline Flush 700 ml Output Urine Total 2475 ml Laboratory Labs Laboratory Tests Test 04/16/20 14:30 04/16/20 20:25 04/17/20 06:30 White Blood Count 7.7 x10^3/uL (4.0-11.0) 4.3 x10^3/uL (4.0-11.0) Red Blood Count 2.12 x10^6/uL (3.50-5.40) 2.52 x10^6/uL (3.50-5.40) Hemoglobin 6.7 g/dL (12.0-15.5) 8.5 g/dL (12.0-15.5) 7.6 g/dL (12.0-15.5) Hematocrit 19.1 % (36.0-47.0) 24.7 % (36.0-47.0) 22.4 % (36.0-47.0) Mean Corpuscular Volume 90 fL (79-100) 89 fL (79-100) Mean Corpuscular Hemoglobin 32 pg (25-35) 30 pg (25-35) Mean Corpuscular Hemoglobin Concent 35 g/dL (31-37) 34 g/dL (31-37) Red Cell Distribution Width 12.9 % (11.5-14.5) 13.9 % (11.5-14.5) Platelet Count 107 x10^3/uL (140-400) 89 x10^3/uL (140-400) Neutrophils (%) (Auto) 70 % (31-73) 65 % (31-73) Lymphocytes (%) (Auto) 18 % (24-48) 20 % (24-48) Monocytes (%) (Auto) 12 % (0-9) 12 % (0-9) Eosinophils (%) (Auto) 0 % (0-3) 2 % (0-3) Basophils (%) (Auto) 0 % (0-3) 1 % (0-3) Neutrophils # (Auto) 5.4 x10^3/uL (1.8-7.7) 2.8 x10^3/uL (1.8-7.7) Lymphocytes # (Auto) 1.4 x10^3/uL (1.0-4.8) 0.9 x10^3/uL (1.0-4.8) Monocytes # (Auto) 0.9 x10^3/uL (0.0-1.1) 0.5 x10^3/uL (0.0-1.1) Eosinophils # (Auto) 0.0 x10^3/uL (0.0-0.7) 0.1 x10^3/uL (0.0-0.7) Basophils # (Auto) 0.0 x10^3/uL (0.0-0.2) 0.0 x10^3/uL (0.0-0.2) Sodium Level 137 mmol/L (136-145) Potassium Level 4.0 mmol/L (3.5-5.1) Chloride Level 103 mmol/L (98-107) Carbon Dioxide Level 31 mmol/L (21-32) Anion Gap 3 (6-14) Blood Urea Nitrogen 10 mg/dL (7-20) Creatinine 0.8 mg/dL (0.6-1.0) Estimated GFR (Cockcroft-Gault) 69.4 Glucose Level 103 mg/dL (70-99) Calcium Level 8.0 mg/dL (8.5-10.1) Physical Exam HEENT: Neck Supple W Full Motion Chest: Symmetric LUNGS: Clear to Auscultation Heart: S1S2, RRR Abdomen: Soft N/T Extremities: No Edema Neurology: alert, oriented, follow commands Assessment Assessment 1. Traumatic fall with displaced intertrochanteric fracture of left femur; s/p surgical intervention. Tolerated well 2. Syncopal episode; most probably vasovagal. CT head without acute intracranial process. Telemetry did not show any significant arrhythmias. Echo with preserved LV systolic function. 3. Post-pp anemia; s/p transfusion. 4. RODGER; resolved Recommendations Outpatient event monitor Okay to discharge to SNU Follow up in our office with Dr. Sims as scheduled. Justicifation of Admission Dx: Justifications for Admission: Justification of Admission Dx: Yes ADAL SIMS MD 04/17/20 1930: CARDIO Progress Notes Assessment Assessment Patient seen and examined. Agree with HAND SLITTER's assessment and plan. Tele did not show any significant arrhythmias 2D echo showed normal LVF Plan event monitor as outpatient BRITTNEE KEMP APRN Apr 17, 2020 12:04 ADAL SIMS MD Apr 17, 2020 19:30
--- NOTE | 2020-04-17 12:48 | NUR ---
Patient had spontaneous voiding at 1240.
--- NOTE | 2020-04-17 15:23 | NUR ---
Discharge Note: DEBO HAND STRATFORD Discharge instructions and discharge home medications reviewed with Adrianne ALVA at [facility] at 1440 and a copy given to the transport personnel. All questions have been answered and understanding verbalized. The following instructions and handouts were given: Daily dressing change. Percocet prescription in the packet Daily hemoglobin determination, call Dr. Alva if Hgb less than 7 for possible transfusion. WBAT on left lower extremity. Patient's son updated. Discontinued lines and drains: peripheral IV intact, patient tolerated removal, no complications noted. Patient discharged to [facility] via wheelchair on 2lPM oxygen per nasal cannula at 1452 accompanied by transport personnel.
--- NOTE | 2020-04-26 12:26 | DS ---
DATE OF DISCHARGE: 04/17/2020 ADMISSION DIAGNOSES: Syncope and left hip fracture. DISCHARGE DIAGNOSES: Resolving left hip fracture, resolving syncope. HOSPITAL COURSE: The patient is a pleasant middle-aged female who fell and had a hip fracture. There was some concern she could have a syncopal episode, but we really never found any reason for the syncope, other than that, she probably just fell. Basically, she went for ORIF. Post-procedure, she did well. We discharged to jail. DISPOSITION: Skilled. ACTIVITY: As tolerated. DIET: Low sodium. MEDICATIONS: Please see MRAD. TOTAL TIME: 32 minutes. NIAL Graham GARBER DO DR: SHANA/ilia JOB#: [id number] / [id number]
== END 2020-04-17 14:52 | DRG 480 ==
LOC: ER 13:17 → 2 NORTH 14:12
PROVIDERS: ADMIT Internal Medicine; ATTEND Internal Medicine
PROC: 0QS736Z Reposition Left Upper Femur with Intramedullary Internal Fixation Device, Percutaneous Approach (ICD-10-PCS; principal; 2020-04-15 10:00)
PROC: 30233N1 Transfusion of Nonautologous Red Blood Cells into Peripheral Vein, Percutaneous Approach (ICD-10-PCS; 2020-04-16)
DX: S72.142A Displaced intertrochanteric fracture of left femur, initial encounter for closed fracture (principal); N17.0 Acute kidney failure with tubular necrosis; G93.40 Encephalopathy, unspecified; D64.9 Anemia, unspecified; D72.829 Elevated white blood cell count, unspecified; I45.10 Unspecified right bundle-branch block; W18.39XA Other fall on same level, initial encounter; Y93.89 Activity, other specified; Y92.89 Other specified places as the place of occurrence of the external cause; Y99.8 Other external cause status; Z20.828 Contact with and (suspected) exposure to other viral communicable diseases
CPT/HCPCS: 36415; 70450; 71045; 73502; 73552; 76000; 80048; 80053; 82306; 84484; 85007; 85014; 85018; 85025; 85610; 85730; 86850; 86900; 86901; 86920; 87426; 93005; 93306; A7015; C1713; C1776; C1887; J0330; J0690; J1100; J1650; J2270; J2370; J2405; J2704; J3010; J3480; J3490; J7040; J7120; P9016; 97110-GP; 97530-GO; 97530-GP; 97535-GO; G0378; U0003-CS